=== PATIENT | male | born 1935 | race Caucasian/White ===

== ENCOUNTER 2018-04-12 22:36 | Inpatient (IN) | payer OTHER ==
--- NOTE | 2018-04-12 22:49 | EDPHY ---
H & P Stated Complaint: BACK PAIN/POS PROSTATE INFX Time Seen by Provider: 04/12/18 22:49 HPI/ROS: HPI: This 82-year-old male who presented with Chief Complaint: Low back pain left lower quadrant pain Location: Low back, left lower quadrant Quality: Pain Duration: Several days Signs and Symptoms: no fever, no nausea, no vomiting, no hematemesis, no blood in stool, no abdominal bloating, no diarrhea, no back pain, no urinary symptoms , no testicular/groin pain, no indigestion, no chest pain, no shortness of breath Timing: Acute Severity: Worsening Context: Patient reports that he was having dysuria, urinary frequency, low back pain for several days and to urgent care [id number] and was diagnosed with BPH and acute prostatitis; he was given Flomax and Bactrim for which she has been taking and being compliant. Over the last several days patient has continued to feel generalized weakness with fatigue. His daughter is extremely concerned that he has diverticulitis and with like laboratory studies and CT abdomen and pelvis scan performed. Patient reports that he has a decreased appetite. Denies any fever/diarrhea/nausea/vomiting. Modifying Factors: Bactrim, Flomax Comment: ROS: see HPI Constitutional: No fever, no chills, no weight loss Eyes: No blurred vision Respiratory: No shortness of breath, no cough Cardiovascular: No chest pain, no palpitations Gastrointestinal: No nausea, no vomiting, no diarrhea, no hematemesis, no blood in stool Genitourinary: No dysuria, no blood in urine Extremities: No myalgias, no edema Neurologic: No weakness, no numbness Skin: No rashes, no petechiae Hematologic: No bruising, no bleeding MEDICAL/SURGICAL/SOCIAL HISTORY: Medical history: Hard of hearing on right; BPH. Surgical history: Tonsillectomy Social history: Retired. Never smoked. Family history noncontributory. CONSTITUTIONAL: Polite and cooperative elderly white male, awake and alert, no obvious distress HEENT: Atraumatic and normocephalic, PERRL, EOMI. Nares patent; no rhinorrhea; no nasal mucosal edema. Tympanic membranes clear. Oropharynx clear, no exudate and moist pink mucosa. Airway patent. No lymphadenopathy. No meningismus. Cardiovascular: Normal S1/S2, regular rate, regular rhythm, without murmur rub or gallop. PULMONARY/CHEST: Symmetrical and nontender. Clear to auscultation bilaterally. Good air movement. No accessory muscle usage. ABDOMEN: Soft, nondistended, minimal left lower quadrant tenderness, no rebound , no guarding, no peritoneal signs, no masses or organomegaly. No CVAT. EXTREMITIES: 2/2 pulses, strength 5/5, no deformities, no clubbing, no cyanosis or edema. NEUROLOGICAL: no focal neuro deficits. GCS 15. SKIN: Warm and dry, no erythema. no rash. Good capillary refill. Source: Patient, Family (Daughter) Exam Limitations: No limitations - Personal History Current Tetanus Diphtheria and Acellular Pertussis (TDAP): Yes Tetanus Vaccine Date: 07/11 - Medical/Surgical History Hx Asthma: No Hx Chronic Respiratory Disease: No Hx Diabetes: No Hx Cardiac Disease: No Hx Renal Disease: No Hx Cirrhosis: No Hx Alcoholism: No Hx HIV/AIDS: No Hx Splenectomy or Spleen Trauma: No Other PMH: TONSIL, ADENOIDS, EYE STRAIGHTENING - Social History Smoking Status: Never smoked Constitutional: Initial Vital Signs Temperature (C) 36.6 C 04/12/18 22:42 Heart Rate 71 04/12/18 22:42 Respiratory Rate 16 04/12/18 22:42 Blood Pressure 172/86 H 04/12/18 22:42 O2 Sat (%) 92 04/12/18 22:42 O2 Delivery Mode Room Air Allergies/Adverse Reactions: No Known Allergies Allergy (Verified 04/12/18 22:41) Home Medications: Medication Instructions Recorded NK [No Known Home Meds] 04/12/18 Medical Decision Making ED Course/Re-evaluation: Vital signs reviewed and stable. No systemic signs. Labs, urinalysis, CT abdomen and pelvis scan to evaluate for diverticulitis ordered. 2315: Labs reviewed. Creatinine 2.9; BUN 42; in 2011 creatinine was around 1. 1 L normal saline ordered. CT abdomen and pelvis scan changed to without contrast and differential now includes ureterolithiasis. Called by radiologist who advised that CT abdomen and pelvis scan shows significant bladder wall thickening concerning for malignancy as well as right ureteral blockage in obstructing in the collecting system 2354: ED decision to consult hospitalist for admission acute kidney injury secondary to obstruction verses Bactrim induced and bladder malignancy. Spoke with Dr. Hackett who kindly agrees to admit patient for further care. Urology consulted. This patient was seen under the supervision of my secondary supervising physician. I evaluated care for this patient independently. Discussed this patient with Dr. Mejia who did not see the patient. Differential Diagnosis: Back pain including but not limited to muscular pain, herniated disc, spine fracture, intra-abdominal causes and urinary tract infection. - Data Points Laboratory Results: Laboratory Results 04/12/18 23:07 04/12/18 23:07 04/12/18 04/12/18 04/12/18 23:10 23:07 23:07 WBC 9.62 10^3/uL H 10^3/uL (3.80-9.50) RBC 4.53 10^6/uL 10^6/uL (4.40-6.38) Hgb 14.7 g/dL g/dL (13.7-17.5) POC Hgb 15.3 gm/dL gm/dL (13.7-17.5) Hct 42.9 % % (40.0-51.0) POC Hct 45 % % (40-51) MCV 94.7 fL fL (81.5-99.8) MCH 32.5 pg pg (27.9-34.1) MCHC 34.3 g/dL g/dL (32.4-36.7) RDW 13.3 % % (11.5-15.2) Plt Count 166 10^3/uL 10^3/uL (150-400) MPV 10.1 fL fL (8.7-11.7) Neut % (Auto) 76.8 % H % (39.3-74.2) Lymph % (Auto) 8.1 % L % (15.0-45.0) [place] % (Auto) 14.2 % H % (4.5-13.0) Eos % (Auto) 0.4 % L % (0.6-7.6) Baso % (Auto) 0.3 % % (0.3-1.7) Nucleat RBC Rel Count 0.0 % % (0.0-0.2) Absolute Neuts (auto) 7.38 10^3/uL H 10^3/uL (1.70-6.50) Absolute Lymphs (auto) 0.78 10^3/uL L 10^3/uL (1.00-3.00) Absolute Monos (auto) 1.37 10^3/uL H 10^3/uL (0.30-0.80) Absolute Eos (auto) 0.04 10^3/uL 10^3/uL (0.03-0.40) Absolute Basos (auto) 0.03 10^3/uL 10^3/uL (0.02-0.10) Absolute Nucleated RBC 0.00 10^3/uL 10^3/uL (0-0.01) Immature Gran % 0.2 % % (0.0-1.1) Immature Gran # 0.02 10^3/uL 10^3/uL (0.00-0.10) POC Sodium 138 mEq/L mEq/L (135-145) Sodium 140 mEq/L mEq/L (135-145) POC Potassium 4.9 mEq/L mEq/L (3.3-5.0) Potassium 4.9 mEq/L mEq/L (3.3-5.0) POC Chloride 112 mEq/L H mEq/L (97-110) Chloride 110 mEq/L mEq/L (97-110) Carbon Dioxide 16 mEq/l L mEq/l (22-31) Anion Gap 14 mEq/L mEq/L (8-16) POC BUN 45 mg/dL H mg/dL (7-23) BUN 42 mg/dL H mg/dL (7-23) Creatinine 2.5 mg/dL H mg/dL (0.7-1.3) POC Creatinine 2.9 mg/dL H mg/dL (0.7-1.3) Estimated GFR 25 Glucose 119 mg/dL H mg/dL (70-100) POC Glucose 126 mg/dL H mg/dL (70-100) Calcium 9.0 mg/dL mg/dL (8.5-10.4) Total Bilirubin 0.4 mg/dL mg/dL (0.1-1.4) Conjugated Bilirubin 0.4 mg/dL mg/dL (0.0-0.5) Unconjugated Bilirubin 0.0 mg/dL mg/dL (0.0-1.1) AST 28 IU/L IU/L (17-59) ALT 37 IU/L IU/L (21-72) Alkaline Phosphatase 92 IU/L IU/L (38-126) Total Protein 6.1 g/dL L g/dL (6.3-8.2) Albumin 3.0 g/dL L g/dL (3.5-5.0) Lipase 47 IU/L IU/L (23-300) Medications Given: Discontinued Medications Sodium Chloride (Ns) 1,000 mls @ 0 mls/hr IV EDNOW ONE; Wide Open PRN Reason: Protocol Stop: 04/12/18 23:17 Last Admin: 04/12/18 23:16 Dose: 1,000 mls Point of Care Test Results: Chemistry 04/12/18 23:10 POC Sodium 138 mEq/L mEq/L (135-145) POC Potassium 4.9 mEq/L mEq/L (3.3-5.0) POC Chloride 112 mEq/L H mEq/L (97-110) POC BUN 45 mg/dL H mg/dL (7-23) POC Creatinine 2.9 mg/dL H mg/dL (0.7-1.3) POC Glucose 126 mg/dL H mg/dL (70-100) ISTAT H&H 04/12/18 23:10 POC Hgb 15.3 gm/dL gm/dL (13.7-17.5) POC Hct 45 % % (40-51) Departure - Departure Disposition: [facility] Acute Clinical Impression: DENISE (acute kidney injury), Obstruction of right ureter Bladder malignancy Qualifiers: Bladder location: unspecified site Qualified Code(s): C67.9 - Malignant neoplasm of bladder, unspecified Condition: Fair
[2018-04-12 23:15] LABS: PLATELET COUNT 166 10^3/uL (150-400)
[2018-04-12] MEDS ORDERED: NS 1,000 ML IV ONE (23:16)
[2018-04-13] MEDS ORDERED: HYDROmorphONE/DILAUDID 1 MG/ML INJ IVP PRN (00:25)
[2018-04-13] MEDS ORDERED: ONDANSETRON 4 MG/2 ML VIAL IVP PRN (00:25)
[2018-04-13] MEDS: HYDROCODONE/APAP 5/325 TAB PO PRN ×3 (00:40→18:47)
[2018-04-13] MEDS ORDERED: TEMAZEPAM 15 MG CAP PO PRN (02:49)
[2018-04-13] MEDS ORDERED: LORazepam 0.5 MG TAB PO ONE (03:03)
[2018-04-13] MEDS ORDERED: POLYETHYLENE GLYCOL 3350 17 GM PKT PO PRN (03:19)
[2018-04-13] MEDS ORDERED: BISACODYL 10 MG SUPP PR PRN (03:19)
[2018-04-13] MEDS ORDERED: LACTULOSE 20 GM/30 ML UDCUP PO PRN (03:19)
[2018-04-13] MEDS ORDERED: MAGNESIUM HYDROXIDE 30 ML UDCUP PO PRN (03:19)
--- NOTE | 2018-04-13 04:06 | GHP ---
[f rep st] HISTORY AND PHYSICAL DATE OF ADMISSION: 04/13/2018 SOURCE OF DATA: Patient provides history, appears reliable. EMR was reviewed and case discussed with ED provider. PRIMARY CARE PHYSICIAN: Unlisted. CHIEF COMPLAINT: Low back pain and left lower quadrant abdominal pain. HISTORY OF PRESENT ILLNESS: This is a very pleasant 82-year-old gentleman with past medical history significant for BPH, macular degeneration, hearing deficit , and history of diverticulosis, who presents to the emergency department today with complaints of worsening low back pain and left lower quadrant abdominal pain for several days. The patient reports that his low back pain actually started weeks to months ago. He had an episode of hematuria at 1 point, which did clear, but this was several months ago. He has a history of urinary frequency, nocturia and difficulty initiating urinary stream. He has not had a formal diagnosis of BPH. However, he did present to Urgent Care a few days ago and was diagnosed with prostatitis and started on Flomax and Bactrim. The patient since that time has developed worsening generalized weakness and increasing fatigue, decreased appetite. He denies any fevers, chills, nausea, vomiting, or diarrhea. He has not had any melena or hematochezia. No known sick contacts. REVIEW OF SYSTEMS: GENERAL: Negative for fevers, chills. SKIN: No acute rashes, sores. ENT: Patient reports some disequilibrium with ambulation occasionally related to his progressively declining hearing, right worse than left ear. He denies any rhinorrhea or sore throat. EYES: Patient wears glasses. No acute vision changes, but has progressively had decline related to his macular degeneration. CV: No chest pain, palpitations. RESPIRATORY: Patient does report that he has been having increasing shortness of breath with exertion in the last several weeks. He denies any cough. He also notes that he has had some issues with adjustment when he would go back home to [place] related to altitude at 8700 feet. However, in the last several weeks, he reports this is more unusual than normal. He denies any lower extremity swelling or edema. No calf pain or tenderness. GI: See HPI. : The patient denies any dysuria, but he has had plenty of frequency with decreased stream and difficulties initiating a stream. He has had a singular episode of hematuria that resolved several months ago. No tobacco history. MUSCULOSKELETAL: The patient denies any acute joint pain or myalgias. NEURO: Patient does report occasional pressure-type headaches. No numbness, tingling, or focal deficits. PSYCH: Negative for anxiety, depression. Remainder ROS negative except as noted above. ALLERGIES: No known drug allergies. HOME MEDICATIONS: As per EMR. Just recently patient was started on Bactrim and Flomax. Otherwise, none listed. PAST MEDICAL HISTORY: Significant for macular degeneration, BPH, hearing deficit, history of lower GI bleeding diagnosed with diverticulosis, internal hemorrhoids. PAST SURGICAL HISTORY: Significant for tonsillectomy, adenoidectomy, EGD and colonoscopy in 2018. FAMILY HISTORY: Father , related to CAD. Mother at old age of 98. The patient has 4 adult children who are mostly healthy. He has 1 son with a history of prostate cancer. No colon cancer runs in the family. SOCIAL HISTORY: Patient lives alone currently. He is . He previously had a prototype technician living with him, but she has since moved out of state. He has good support from his children in town. He does not smoke. He drinks an occasional beer. Nothing on a daily basis and does not use any illicit drugs or marijuana. CODE STATUS: Patient with advanced directives and is a DNR DNI. PHYSICAL EXAM: VITAL SIGNS: Blood pressure 172/86, heart rate 71, respiratory rate 16, O2 saturation 92% on room air with temperature 36.6. GENERAL: No acute distress. Pleasant, elderly adult gentleman is resting quietly in bed. He wakes easily to his name. Pleasant and cooperative. HEAD: Normocephalic, atraumatic. EYES: Extraocular muscles grossly intact. Pupils equal, round, decreased reactive to light bilaterally, but symmetric. No scleral icterus or conjunctival injection. ENT: Mucous membranes appear slightly dry. No oropharyngeal erythema or exudates. Dentition is fair condition. NECK: Supple. Trachea midline. CV: Regular rate and rhythm. No murmurs, rubs, or gallops appreciated. RESPIRATORY: Unlabored breathing. Lungs are clear to auscultation bilaterally, but he is a bit diminished bibasilarly, possibly a few crackles in the left base compared to the right. Otherwise, unlabored breathing. ABDOMEN: Positive bowel sounds. Soft, nontender to palpation. No rebound, guarding, or masses appreciated. : No Cuevas catheter in place. No suprapubic tenderness to palpation. EXTREMITIES: 2+ pedal pulses bilaterally and symmetric. No edema. Patient sits up independently. Moves all extremities. Strength grossly intact. 5/5 upper and lower extremities. NEURO: Grossly nonfocal. No facial drooping. Moves all extremities as noted above. PSYCH: Thought process, content and questions are all appropriate. Patient awake, alert, and oriented x3. LABORATORY STUDIES: 1. WBC is 9.62, H and H is 14.7, 42.9, MCV of 94.7, platelet count is 166, neutrophil percent 76.8, no bands. 2. Sodium is 140, potassium 4.9, chloride 110, CO2 16, BUN is 42, creatinine is 2.5, GFR estimate is 25, glucose 119, calcium is 9.2. Total protein 6.1, albumin is 3.0, total bilirubin 0.4, ALT is 37, AST 28, alkaline phosphatase 92 , lipase is 47. UA: Specific gravity 1.019, pH of 5.0, 2+ protein, 1+ leuk esterase. RBCs and WBCs are pending. Glucose negative. 3. CT abdomen and pelvis: Image report was reviewed myself, is noncontrast study. Visualized lung bases show no discrete consolidation or effusion. Pulmonary nodule, normal size liver with smooth surface contour, 6 mm hypoattenuating nodule within the inferior left hepatic lobe, probably a simple cyst. Gallbladder decompressed. No ductal dilation. There is a high-grade obstruction of the right renal collecting system with inflammatory stranding throughout the renal hilum. Obstruction likely related to irregular masslike thickening of the right bladder wall. There is also pathologic enlargement of the adjacent lymph nodes in the internal iliac chain, sales support representative of large lymph node measuring up to 1.9 cm. Numerous bilateral renal cortical nodules suggestive of simple and hypoattenuated cysts, limited secondary to noncontrast study. Hiatal hernia present is small. Small bowel is nondilated, non thickened, large right inguinal hernia contains nonobstructed loops of distal small bowel. There is dilation of the cecum with retained stool and gas. Extensive diverticulosis is noted. Prostate enlarged with dystrophic internal calcifications. No intraabdominal free fluid or free air. Multiple level degenerative changes in the lumbar spine are present. 4. Chest x-ray ordered. Image report reviewed myself. Appears to be some linear atelectasis, upper lobe haziness, perihilar prominence is present. ASSESSMENT AND PLAN: This is a pleasant 82-year-old gentleman who presents with complaints of low back pain and lower abdominal pain. 1. Abdominal pain. CT does not quite explain the patient's complaint of right- sided abdominal pain. He does have a high-grade obstructive process on the left renal collecting system with findings suggestive of malignancy. He also has a right-sided inguinal hernia which is relatively asymptomatic. At this time, patient reports that his pain is currently well controlled. CT findings were discussed with the patient previously by the ED provider. I did review again with the patient the findings. Plan for urology consultation has been called from the emergency department to see the patient tomorrow. The patient' s UA is still pending at this time. Given patient's high-grade obstructive process, we will plan to add on dosing of Rocephin. He has been on Bactrim. However, given patient's acute renal insufficiency, we will discontinue. We will plan to continue patient's Flomax. 2. Bladder wall mass. Plan as above. 3. Acute renal failure. Patient's most recent renal function dates back to 2011 and was 1.08. Likely some component of obstructive nephropathy given findings of bladder wall mass and high-grade obstruction on the right as well as patient's history of benign prostatic hypertrophy. Continue with some gentle IV fluid hydration. Continue with Flomax. Neurology consultation as noted above. Repeat BMP in the morning. 4. Dyspnea. Chest x-ray obtained. No evidence of acute consolidations. There are some chronic appearing findings in the upper lobe. Given patient's new finding of bladder wall mass at increased risk for pulmonary embolus, patient not currently tachycardic or hypoxic. Consider additional imaging if patient's renal function improves. Hold off on anticoagulation at this time pending Urology evaluation. 5. Benign prostatic hypertrophy. Continue Flomax. Monitor for urinary retention. 6. Hypoalbuminemia, likely declined in setting of newfound findings of bladder wall mass and acute process. 7. Constipation. Bowel protocol will be ordered. 8. Fluid, electrolyte and nutrition, IV fluids overnight for hydration. Will make patient be n.p.o., electrolyte monitoring, replacement if needed. 9. Prophylaxis. Sequential compression devices, holding anticoagulation pending urologic evaluation. 10. Code status is DNR DNI. Patient reports that he has advanced directives in place. 11. Disposition. The patient has been admitted to inpatient status. Anticipate that the patient will be here greater than 2 midnights given the complexity of his findings and need for additional workup. /[id number]/MODL MTDD
[2018-04-13 06:35] LABS: PLATELET COUNT 153 10^3/uL (150-400)
[2018-04-13] MEDS: SENNOSIDES/DOCUSATE SODIUM TAB PO SCH ×2 (09:43→20:52)
[2018-04-13] MEDS: TAMSULOSIN HCL 0.4 MG CAP PO SCH (09:43)
[2018-04-13] MEDS: NS 1,000 ML IV SCH (10:29)
--- NOTE | 2018-04-13 13:22 | PDMN ---
Medical Necessity Medical necessity: Pt meets IP criteria per & [facility]: Urinary Complications w/bladder wall mass/high-grade obstructive process suggestive of malignancy, worsening back pain, generalized weakness/fatigue, acute renal failure & dyspnea; admit for further workup, Urology consult, IV abx & IVFs
--- NOTE | 2018-04-13 14:11 | ASMTCMCOM ---
CM Note CM Note Notes: Chart reviewed. Patient is an 82 year old male from [facility]. He was brought in by his daughter Alejandra when she became concerned about his having difficulty with breathing after having been diagnosed with prostatitis and been taking antibiotics He normally spends most of his time in [facility] and is typically very active riding his bike to the store and into [place]. She shares with me she hopes to get him to come down to her home in [place] more often He lost his Ana about 17 years ago and most recently his auxiliary operator moved to [place] to be closer to her family. He is awaiting testing at this time. Needs TBD. Plan: TBD Date Signed: 04/13/2018 02:11 PM Electronically Signed By:Eliana Teresa RN
--- NOTE | 2018-04-13 14:35 | HOSPPROG ---
Hospitalist Progress Note Assessment/Plan: #Bladder Mass #Low back pain and LLQ Pain #High grade obstruction of renal collecting system due to bladder mass #Bilateral renal and parapelvic nodules #RLL 2 cm nodule #DENISE Plan: IVF Urology to see Additional imaging per Urology Would like to order CT chest, abd/pelvis with IV contrast once Cr. is improving Stop Rocephin cont inpatient Objective: Vital Signs Temp Pulse Resp BP Pulse Ox 36.7 C 58 L 16 161/73 H 93 04/13/18 12:42 04/13/18 12:42 04/13/18 12:42 04/13/18 12:56 04/13/18 12:42 Laboratory Results 04/13/18 06:10 04/13/18 06:10 04/12/18 04/13/18 04/14/18 05:59 05:59 05:59 Intake Total 1000 Output Total 150 Balance 850 ICD10 Worksheet Patient Problems: Problems Problem Status Onset DENISE (acute kidney injury) Acute Bladder malignancy Acute Obstruction of right ureter Acute Bleeding Active
--- NOTE | 2018-04-13 15:30 | GCON ---
[f rep st] CONSULTATION DATE OF CONSULTATION: 04/13/2018 REASON FOR CONSULT: Renal mass, question bladder mass. HPI: This is a pleasant 82-year-old male, who presented with right lower back pain that has been occ urring for the last week. He is also reporting feeling lack of energy and dizzy. He lives alone in [facility] and came down to visit his daughter, who, upon seeing how her father was feeling, recommended that she bring him into the emergency room. He is also now having a new symptom of shortness of kevin ath that occurs while at rest, which he denies having had in the past. He does have a long history o f urinary issues for the last at least a couple of years. He reports getting up 3 times at night wit h a low flow of urine. Denies a known history of prostate cancer or kidney cancer. Did have hematur ia once several months ago. Initially went to [facility] on 04/10/2018, before going to the ER. Was diagnosed with prostatitis and started on antibiotics. Yet, urine culture is negative at t hat visit. HOME MEDICATIONS: As per EMR. ALLERGIES: No known drug allergies. PAST MEDICAL HISTORY: Macular degeneration, BPH, hearing deficit, lower GI bleeding, diverticulosis, internal hemorrhoids. SURGICAL: Tonsillectomy, adenoidectomy, EGD and colonoscopy in 2018. FAMILY HISTORY: Father is from coronary artery disease. The patient has 4 adult children, including his daughter, who lives in [place], is at the bedside. SOCIAL HISTORY: Lives alone in [facility] and is healthy. Recently traveled to [place]. Denies smok ing. Occasional beer drinking. PHYSICAL EXAM: VITAL SIGNS: Blood pressure is 161/73. Heart rate is 58, respiratory rate 16, tempe rature 36.7. O2 is 93 on room air. GENERAL: This is a well-developed, well-nourished male in no ac misbah distress. HEENT: Normocephalic, atraumatic. Extraocular movements intact. NECK: Supple. No lymphadenopathy. CARDIAC: Regular rate and rhythm. No lower extremity edema. No obvious JVD. RES PIRATORY: Normal breath sounds without accessory respiratory muscle use. GI: Abdomen was soft, non distended, nontender to palpation. : No CVA tenderness. No bladder distention or tenderness to p alpation. INTEGUMENT: No obvious rashes or lesions. MUSCULOSKELETAL: Patient was examined while s upine. NEURO: He is alert and oriented. Affect appropriate to situation. LABS: His white blood cell count is 8.86, hemoglobin 13.3, hematocrit 39.3, platelets 153. His chem istry: Sodium 140, potassium 4.8, chloride 112, carbon dioxide 17, BUN 38, creatinine 2.4, glucose 8 8. PSA pending. Urine: Positive for 1+ leuks only. CAT scan of the abdomen and pelvis was reviewe d personally by myself, along with Dr. De Jesus. Does show a question of a possible mass versus enlarge d bladder versus fluid in the bladder, along with thickened-appearing bladder wall. Does have multip le nodules on the left kidney, by our read more concerning for inflammatory process on the right kidn ey, especially without clear evidence of an infection. ASSESSMENT/PLAN: Back pain of unknown etiology, question bladder mass, inflammatory process of the r ight kidney, mass of the left kidney. After review of this complicated case with Dr. De Jesus, we will order a CT cystogram to better assess the bladder. MRI of the kidneys has been ordered, along with a PSA. Once imaging and labs have returned, we will be better able to move forward in caring for this patient. /[id number]/MODL
[2018-04-13] MEDS ORDERED: IOPAMIDOL (ISOVUE-300) 100 ML BTL ONE (16:36)
[2018-04-13] MEDS: TRAVOPROST Z 0.004% 2.5 ML OPHT.BTL RTEYE SCH (20:52)
[2018-04-14] MEDS: HYDROCODONE/APAP 5/325 TAB PO PRN ×2 (01:06→09:15)
[2018-04-14] MEDS: hydrALAZINE 10 MG TAB PO PRN ×2 (01:44→09:13)
[2018-04-14] MEDS: LORazepam 0.5 MG TAB PO PRN ×2 (01:46→21:37)
[2018-04-14 05:08] LABS: PLATELET COUNT 162 10^3/uL (150-400)
[2018-04-14] MEDS: TAMSULOSIN HCL 0.4 MG CAP PO SCH (09:15)
[2018-04-14] MEDS: SENNOSIDES/DOCUSATE SODIUM TAB PO SCH ×2 (09:15→21:22)
[2018-04-14] MEDS: NS 1,000 ML IV SCH (10:02)
--- NOTE | 2018-04-14 11:29 | SOAPPROG ---
PRABHJOT Progress Note Assessment/Plan: Assessment: Bladder malignancy Acute CT cystogram concerning for prostate cancer and possible TCC of the bladder, Await PSA prior to further assessment Obstruction of right ureter Acute no dilation of ureter and good parenchyma, wait on PSA prior to further recommendations Plan: as noted 04/14/18 11:27 Subjective: stable Objective: Vital Signs Temp Pulse Resp BP Pulse Ox 36.9 C 66 18 168/81 H 92 04/14/18 08:26 04/14/18 10:43 04/14/18 09:19 04/14/18 10:43 04/14/18 10:43 Laboratory Results 04/14/18 04:26 04/14/18 04:26 04/13/18 04/14/18 04/15/18 05:59 05:59 05:59 Intake Total 2422 Output Total 1275 Balance 1147 Physical Exam - Physical Exam General Appearance: no apparent distress ICD10 Worksheet Patient Problems: Problems Problem Status Onset DENISE (acute kidney injury) Acute Bladder malignancy Acute Obstruction of right ureter Acute Bleeding Active
--- NOTE | 2018-04-14 13:04 | ASMTCMCOM ---
CM Note CM Note Notes: Chart reviewed. Still awaiting diagnostic results. Dr. De Jesus from urology in to see the patient. The patient and his daughter have ambulated in the halls. His gait is steady, No therapies currently ordered. CM to follow as needs are to be determined. Plan: TBD Date Signed: 04/14/2018 01:03 PM Electronically Signed By:Eliana Teresa RN
--- NOTE | 2018-04-14 14:38 | HOSPPROG ---
Hospitalist Progress Note Assessment/Plan: #Bladder Mass #Low back pain and LLQ Pain #High grade obstruction of renal collecting system due to bladder mass #Bilateral renal and parapelvic nodules #RLL 2 cm nodule #DENISE, vs acute on chronic, vs chronic #constipation -KUB reviewed Plan: IVF- cont urine studies no abx cont monte await PSA Urology following Would like to order CT chest, abd/pelvis with IV contrast once Cr. is improving cont inpatient Subjective: abd distention. some SOB Objective: Vital Signs Temp Pulse Resp BP Pulse Ox 36.9 C 61 16 170/78 H 91 L 04/14/18 12:43 04/14/18 12:43 04/14/18 12:43 04/14/18 12:43 04/14/18 12:43 Laboratory Results 04/14/18 04:26 04/14/18 13:38 04/13/18 04/14/18 04/15/18 05:59 05:59 05:59 Intake Total 2422 Output Total 1275 Balance 1147 - Physical Exam Constitutional: no apparent distress, not in pain Eyes: PERRL, EOMI Ears, Nose, Mouth, Throat: moist mucous membranes, hearing normal, ears appear normal Cardiovascular: regular rate and rhythym, No edema Respiratory: no respiratory distress, no rales or rhonchi Gastrointestinal: distension Skin: warm Musculoskeletal: No generalized weakness Neurologic: AAOx3 Psychiatric: interacting appropriately, not anxious Lymph, Heme, Immunologic: no cervical LAD, No petechiae ICD10 Worksheet Patient Problems: Problems Problem Status Onset DENISE (acute kidney injury) Acute Bladder malignancy Acute Obstruction of right ureter Acute Bleeding Active
[2018-04-14 15:29] LABS: CREATINE KINASE 25 IU/L (0-224)
--- NOTE | 2018-04-14 16:25 | GCON ---
[f rep st] CONSULTATION ONCOLOGY CONSULT REASON FOR CONSULTATION: Bladder mass. HISTORY OF PRESENT ILLNESS: Much of the history was obtained from both the patient, the chart, and gianluca hui his daughter, Alejandra, who is very up to date about his health care. He reports that he has been h aving increasing trouble with urination. He has also had some abnormal discomfort and sensation for the last 3 or 4 months down in his pelvis and genital area. After he went to the bathroom a couple d ays ago, he did have some severe pain, but then it seemed to settle down with some Advil. The next d ay, the pain kept coming back, and he saw his PCP. I believe the UA at that time was unremarkable. On Tuesday, his daughter notes that he seemed more fatigued, and with the urinary problem she took him to Urgent Care. They gave him antibiotics and Flomax for possible prostatitis. Since that time, carol ann bourne generalized weakness and fatigue worsened, and he has had decreased appetite. He has had some mild dyspnea with exertion. He denied any bleeding or significant bruising. Denied any fever or chills. He was brought to the emergency room for the persistent low-back pain and lower quadrant abdominal pain where a CT scan revealed a possible high-grade obstruction of the right renal collecting system with stranding in the hilum, and an irregular mass-like thickening in the right bladder wall, and han e enlargement in the surrounding lymph nodes, and enlarged prostate. He has been seen by Urology, bu t has not had a biopsy yet. I reviewed the films with Dr. De Jesus. ALLERGIES: He has no known drug allergies. HOME MEDICATIONS: Include eye drops; travoprost. He also takes ibuprofen. He was recently on Bactr im for the prostatitis. Tamsulosin and multivitamin. PAST MEDICAL HISTORY: Chronic illnesses really minimal. He has had BPH, macular degeneration with t rouble with his vision, chronic hearing loss, and diverticulosis. SURGICAL HISTORY: Includes eye surgery and tonsillectomy as a child. FAMILY HISTORY: Mother age 98. Father of heart disease. No history of cancer in either o f them. He had a sister with a history of breast cancer, but no other cancer in siblings. He has 4 children; 2 brothers, one recently diagnosed with prostate cancer, and 1 daughter. SOCIAL HISTORY: He is a . He currently lives alone, but he has local children who support hi m. Does not smoke. He drinks only an occasional beer and no drug use. He typically is very active. REVIEW OF SYSTEMS: 10-point review of systems performed. Pertinent positives as per HPI, otherwise negative. PHYSICAL EXAM: VITAL SIGNS: Temperature is 36.9, pulse is 61, blood pressure is 170/78. General: He is an elderly man in no distress. HEENT: He has poor vision. Sclerae nonicteric. Oral mucosa i s unremarkable. He has decreased hearing, but not wearing his hearing aids right now. LUNGS: Clear . CARDIAC: Regular. ABDOMEN: Soft, mildly distended. Bowel sounds are present. EXTREMITIES: Un remarkable. NEUROLOGICAL: Appears to be grossly intact. He does have a Cuevas catheter in, and he smiley s had 1100 mL out recently of urine. LABS: On arrival, white count is 9600, hemoglobin is normal, platelet count is normal. Today, the C BC is similar. CMP: On arrival, his BUN and creatinine are 42 and 2.5. His other chemistries and L FTs are unremarkable. Albumin is down to 3. Today, his BUN and creatinine are 32 and 2.0. Potassiu m is up a little bit, 5.3. PSA is 3.08. IMAGING: Chest x-ray showed mild bibasilar atelectasis, some peribronchial wall thickening. X-ray o f the abdomen showed constipation. CT of the abdomen and pelvis showed high-grade obstruction in the right renal collecting system; bilateral renal cortical and parapelvic nodules, most likely cysts; e xtensive diverticulosis; large right internal hernia. He has a bladder wall mass on the right side p robably involving the distal right ureter with associated pelvic lymphadenopathy. He also has an enl arged prostate. There is a small 6 mm nodule in the left lobe, probably a cyst. Chest x-ray at the time showed a right lower lobe 2 cm rounded pneumonitis or pulmonary nodule. Abdominal MRI showed ri ght nephromegaly with right renal hilar inflammation and [id number] right hydronephrosis, lik silvino reflecting calyceal rupture in a patient with a bladder mass obstructing the right ureterovesical junction. CT pelvis with cystogram showed right-sided bladder mass obstructing the ureterovesical j unction and contiguous with an enlarged nodular prostate. Could be an extension of prostate carcinom a versus a bladder carcinoma, enlarged right pelvic lymph node. IMPRESSION: 1. Enlarged prostate. 2. Probable right bladder mass, unclear etiology. 3. Right hydronephrosis. 4. Vague constitutional symptoms. PLAN: At this point, with a normal PSA, locally invasive prostate cancer seems unlikely. He still c ould have BPH. I spoke to Dr. De Jesus, and his approach was going to be dependent upon that PSA, and I will defer to him how best to evaluate the bladder mass. With it obstructing the right kidney and w ith an associated lymph node, I am concerned about a localized malignancy. If it turns out to be wilson dder cancer spread to the lymph nodes, he would not be a great candidate for standard chemotherapy, a lthough he could probably tolerate immuno-oncology therapy. At this point, main recommendation is ma ybe check a sed rate to make sure he does not have evidence of PMR as well as a CPK to make sure he d oes not have any signs of myositis, perhaps also having an aldolase. In addition, since there is a q uestion in his lung, we can get a CT without contrast. We will follow along with you while in the spital, but defer further workup to Urology. /[id number]/MODL
[2018-04-14] MEDS: hydrALAZINE 20 MG/ML VIAL IVP PRN (17:17)
[2018-04-14] MEDS: TRAVOPROST Z 0.004% 2.5 ML OPHT.BTL RTEYE SCH (21:36)
[2018-04-15] MEDS: NS 1,000 ML IV SCH ×2 (05:05→21:03)
[2018-04-15] MEDS: HYDROCODONE/APAP 5/325 TAB PO PRN ×3 (05:57→21:08)
--- NOTE | 2018-04-15 09:08 | SOAPPROG ---
SOAP Progress Note Assessment/Plan: Assessment: 1. Bladder mass 2. R ureteral obstruction / hydronephrosis due to #1 3. ?calyceal rupture 4. Renal failure, likely due to obstruction, improving Given that PSA is normal, likely dx is bladder cancer. Neuroendocrine variant of prostate cancer or other malignancy cannot be excluded. Plan: - d/w Dr. Roque of urology. Pt ultimately needs a biopsy for diagnosis, but may not happen on the weekend. - ?ureteral stent or nephrostomy tube to treat R hydronephrosis? will defer to urology re: optimal management. Cr is improving - continue gentle IV fluids - further oncologic care to be determined by the diagnosis. evidence of regional adenopathy but no distant mets. will need bone scan at some point. 35 min spent w/ pt and in coordination of care. 04/15/18 09:05 Subjective: feels well. Objective: exam: NAD Lungs CTAB CV RRR no MGR Abd: +BS. distended. monte in place Ext: 1+ edema Neuro: a+ox3 Vital Signs Temp Pulse Resp BP Pulse Ox 36.7 C 67 17 154/85 H 92 04/15/18 08:38 04/15/18 08:38 04/15/18 08:38 04/15/18 08:38 04/15/18 08:38 Laboratory Results 04/14/18 04:26 04/15/18 05:12 04/14/18 04/15/18 04/16/18 05:59 05:59 05:59 Intake Total 2422 Output Total 1275 1400 Balance 1147 -1400 ICD10 Worksheet Patient Problems: Problems Problem Status Onset DENISE (acute kidney injury) Acute Bladder malignancy Acute Obstruction of right ureter Acute Bleeding Active
[2018-04-15] MEDS: TAMSULOSIN HCL 0.4 MG CAP PO SCH (09:57)
[2018-04-15] MEDS: SENNOSIDES/DOCUSATE SODIUM TAB PO SCH ×3 (09:57→21:08)
--- NOTE | 2018-04-15 12:23 | SOAPPROG ---
PRABHJOT Progress Note Assessment/Plan: Assessment: Bladder malignancy Acute CT cystogram concerning for prostate cancer and possible TCC of the bladder, normal PSA and BPH is considered in his LUT assessment, discussed and consider TURBT with understanding this may not be successful based on mass effect Obstruction of right ureter Acute no dilation of ureter and good parenchyma, discussed options of PCN, attempt to place stent or retrograde yet doubtful can be done Plan: as noted 04/15/18 12:20 Subjective: improving Objective: Vital Signs Temp Pulse Resp BP Pulse Ox 36.7 C 67 17 154/85 H 94 04/15/18 08:38 04/15/18 08:38 04/15/18 08:38 04/15/18 08:38 04/15/18 10:31 Laboratory Results 04/14/18 04:26 04/15/18 05:12 04/14/18 04/15/18 04/16/18 05:59 05:59 05:59 Intake Total 2422 Output Total 1275 1400 Balance 1147 -1400 Physical Exam - Physical Exam General Appearance: alert Respiratory: No respiratory distress Abdomen: soft Neuro/Psych: alert, oriented x 3 ICD10 Worksheet Patient Problems: Problems Problem Status Onset DENISE (acute kidney injury) Acute Bladder malignancy Acute Obstruction of right ureter Acute Bleeding Active
--- NOTE | 2018-04-15 12:44 | HOSPPROG ---
Hospitalist Progress Note Assessment/Plan: #Bladder Mass causing right sided hydronephrosis -PSA not elevated, making the diagnosis of Bladder cancer more probable #Low back pain and LLQ Pain #High grade obstruction of renal collecting system due to bladder mass #Bilateral renal and parapelvic nodules #RLL 2 cm nodule -no e/o of metastasis on CT w/o IV contrast #DENISE, vs acute on chronic, vs chronic -Due to obstruction -Improving #constipation and abdominal distention -KUB reviewed Plan: -IVF -Urology following, will await surgical recc, biopsy reccs for diagnosis -no abx -cont monte -CLD (no e/o of obstruction on imaging, but distended abd and decreased BS). -Avoid narcotics if possible as likely contributing to decreased gut motility Subjective: no cp or sob. still with abd distention but improving. had large BM last night. Objective: Vital Signs Temp Pulse Resp BP Pulse Ox 36.7 C 67 17 154/85 H 94 04/15/18 08:38 04/15/18 08:38 04/15/18 08:38 04/15/18 08:38 04/15/18 10:31 Laboratory Results 04/14/18 04:26 04/15/18 05:12 04/14/18 04/15/18 04/16/18 05:59 05:59 05:59 Intake Total 2422 Output Total 1275 1400 Balance 1147 -1400 - Physical Exam Constitutional: no apparent distress Eyes: PERRL, EOMI Ears, Nose, Mouth, Throat: moist mucous membranes Cardiovascular: regular rate and rhythym Respiratory: no respiratory distress Gastrointestinal: distension, No normoactive bowel sounds Skin: warm Musculoskeletal: generalized weakness Neurologic: AAOx3 Psychiatric: interacting appropriately, not anxious Lymph, Heme, Immunologic: No petechiae ICD10 Worksheet Patient Problems: Problems Problem Status Onset DENISE (acute kidney injury) Acute Bladder malignancy Acute Obstruction of right ureter Acute Bleeding Active
[2018-04-15] MEDS: ACETAMINOPHEN 325 MG TAB PO PRN ×2 (14:09→23:08)
[2018-04-15] MEDS: hydrALAZINE 20 MG/ML VIAL IVP PRN ×2 (18:42→23:35)
[2018-04-15] MEDS: TRAVOPROST Z 0.004% 2.5 ML OPHT.BTL RTEYE SCH (21:03)
[2018-04-15] MEDS: LORazepam 0.5 MG TAB PO PRN (21:05)
[2018-04-16] MEDS: HYDROCODONE/APAP 5/325 TAB PO PRN ×2 (01:56→21:07)
[2018-04-16] MEDS: TAMSULOSIN HCL 0.4 MG CAP PO SCH (08:54)
[2018-04-16] MEDS: SENNOSIDES/DOCUSATE SODIUM TAB PO SCH ×2 (08:54→21:07)
[2018-04-16] MEDS: ACETAMINOPHEN 325 MG TAB PO PRN (08:54)
--- NOTE | 2018-04-16 09:30 | SOAPPROG ---
PRABHJOT Progress Note Assessment/Plan: Assessment: Bladder malignancy Acute CT cystogram concerning for prostate cancer and possible TCC of the bladder, normal PSA and BPH is considered in his LUT assessment, discussed and consider TURBT with understanding this may not be successful based on mass effect Obstruction of right ureter Acute no dilation of ureter and good parenchyma, discussed options of PCN, attempt to place stent or retrograde yet doubtful can be done, consider contrast study if creat normalizes Plan: as noted 04/16/18 09:29 Subjective: ambulating to BR, abdominal and flank pain improved Objective: Vital Signs Temp Pulse Resp BP Pulse Ox 36.7 C 70 15 169/80 H 92 04/16/18 08:39 04/16/18 08:39 04/16/18 08:39 04/16/18 08:39 04/16/18 08:39 Laboratory Results 04/14/18 04:26 04/16/18 04:30 04/15/18 04/16/18 04/17/18 05:59 05:59 05:59 Intake Total 2159 Output Total 1400 800 Balance -1400 1359 Physical Exam - Physical Exam General Appearance: alert Respiratory: No respiratory distress Abdomen: non-tender Skin: warm/dry Neuro/Psych: alert ICD10 Worksheet Patient Problems: Problems Problem Status Onset DENISE (acute kidney injury) Acute Bladder malignancy Acute Obstruction of right ureter Acute Bleeding Active
--- NOTE | 2018-04-16 09:53 | HOSPPROG ---
Hospitalist Progress Note Assessment/Plan: #Bladder Mass causing right sided hydronephrosis -PSA not elevated, making the diagnosis of Bladder cancer more probable -Cr is improving -Monte is in #Low back pain and LLQ Pain #High grade obstruction of renal collecting system due to bladder mass #Bilateral renal and parapelvic nodules #RLL 2 cm nodule -no e/o of metastasis on CT w/o IV contrast #DENISE, vs acute on chronic, vs chronic -Due to obstruction -Improving #constipation and abdominal distention -s/p BM's Plan: -I spoke with Dr. De Jesus today. He is not planning on any urological interventions at this time. He would like to see the patient f/u with him this week in clinic. The monte is to remain in. Cr is improving. As an outpatient, Dr. De Jesus will consider urological options to include TURBT and Nephrostomy tube -As for ONC diagnosis, this is pending follow up -Advance Diet today, abd is less distended. He has had a bowel movement -Avoid narcotics if possible as likely contributing to decreased gut motility -Likely discharge tomorrow upon repeat labs and tolerating PO -Amlodipine will be started for HTN -PLan is for him to live with his daughter until he is strong enough to return living on his own Subjective: no cp or sob. still with low back pain, but improving. Able to ambulate. no cp or sob. Monte is draining well. Objective: Vital Signs Temp Pulse Resp BP Pulse Ox 36.7 C 70 15 169/80 H 92 04/16/18 08:39 04/16/18 08:39 04/16/18 08:39 04/16/18 08:39 04/16/18 08:39 Laboratory Results 04/14/18 04:26 04/16/18 04:30 04/15/18 04/16/18 04/17/18 05:59 05:59 05:59 Intake Total 2159 Output Total 1400 800 Balance -1400 1359 - Physical Exam Constitutional: no apparent distress Eyes: PERRL Ears, Nose, Mouth, Throat: moist mucous membranes Cardiovascular: regular rate and rhythym, No edema Respiratory: no respiratory distress Gastrointestinal: normoactive bowel sounds Skin: warm Musculoskeletal: generalized weakness Neurologic: AAOx3 Psychiatric: interacting appropriately, not anxious Lymph, Heme, Immunologic: No petechiae ICD10 Worksheet Patient Problems: Problems Problem Status Onset DENISE (acute kidney injury) Acute Bladder malignancy Acute Obstruction of right ureter Acute Bleeding Active
[2018-04-16] MEDS: amLODIPine BESYLATE 5 MG TAB PO SCH (10:39)
--- NOTE | 2018-04-16 11:20 | SOAPPROG ---
SOAP Progress Note Assessment/Plan: Assessment: 1. Bladder mass 2. R ureteral obstruction / hydronephrosis due to #1 3. ?calyceal rupture 4. Renal failure, likely due to obstruction, improving Given that PSA is normal, likely dx is bladder cancer. Neuroendocrine variant of prostate cancer or other malignancy cannot be excluded. Plan: - d/w dr justin. plan is for outpatient cystoscopy with biopsy + TURBT. - creatinine improving - no percutaneous nephrostomy for now. - pt to f/u with Dr. Gallegos in outpatient setting after biopsy. - will order bone scan to complete staging. 25 min spent w/ pt and in coordination of care. 04/16/18 11:19 Subjective: feeling a bit stronger today. Objective: exam unchanged Vital Signs Temp Pulse Resp BP Pulse Ox 36.7 C 70 15 169/80 H 92 04/16/18 08:39 04/16/18 08:39 04/16/18 08:39 04/16/18 10:39 04/16/18 08:39 Laboratory Results 04/14/18 04:26 04/16/18 04:30 04/15/18 04/16/18 04/17/18 05:59 05:59 05:59 Intake Total 2159 Output Total 1400 800 Balance -1400 1359 ICD10 Worksheet Patient Problems: Problems Problem Status Onset DENISE (acute kidney injury) Acute Bladder malignancy Acute Obstruction of right ureter Acute Bleeding Active
--- NOTE | 2018-04-16 11:45 | ASMTCMCOM ---
CM Note CM Note Notes: Chart reviewed met with patient's daughter Alejandra [phone]. She would like to have home health for monte management and to monitor B/P. Per therapy, no needs at this time. They have no preference for C . Will refer to [facility]. Patient to see Dr. De Jesus for follow up of bladder cancer. CM to follow. Plan : home to daughter's house in [place]. Date Signed: 04/16/2018 11:44 AM Electronically Signed By:Eliana Teresa RN
[2018-04-16] MEDS: TRAVOPROST Z 0.004% 2.5 ML OPHT.BTL RTEYE SCH (21:06)
[2018-04-16] MEDS: LORazepam 0.5 MG TAB PO PRN (21:08)
[2018-04-17] MEDS: HYDROCODONE/APAP 5/325 TAB PO PRN ×2 (01:27→05:43)
[2018-04-17 07:36] VITALS: BP 152/75
[2018-04-17] MEDS: TAMSULOSIN HCL 0.4 MG CAP PO SCH (09:50)
[2018-04-17] MEDS: SENNOSIDES/DOCUSATE SODIUM TAB PO SCH (09:50)
[2018-04-17] MEDS: amLODIPine BESYLATE 5 MG TAB PO SCH (09:50)
--- NOTE | 2018-04-17 11:05 | ASMTCMCOM ---
CM Note CM Note Notes: Met with patient and his daughter. He will dc later today after his bone scan. He will have [facility] for HHC services. RN for monte care. Daughter provided with loan closet lists as well as the book on services in [facility] for alternative at home care. He is discharging to his daughters home in [place] and will be followed by Edil Francisco. CM available should other needs arise. Plan Home to daughter's with HHC. Date Signed: 04/17/2018 11:04 AM Electronically Signed By:Eliana Teresa RN
--- NOTE | 2018-04-17 11:32 | GDS ---
[f rep st] DISCHARGE SUMMARY DISCHARGE DIAGNOSES: 1. Bladder mass causing right hydronephrosis. 2. High-grade obstruction of the renal collecting system due to bladder mass. 3. Bilateral renal and parapelvic nodules. 4. Right lower lobe 2 cm nodule. 5. Acute kidney injury. 6. Constipation and abdominal distention. CONSULTANTS: 1. Dr. Edil De Jesus, Urology. 2. Dr. Andrew Nieves, Oncology. HOSPITAL COURSE: 1. Bladder mass causing right hydronephrosis: Patient has been seen by Urology who recommended outp atient treatments. The bladder has been decompressed with a Cuevas catheter. On day of discharge, th e patient is feeling better and awaits bone scan for further imaging. 2. Hypertension: The patient's blood pressure was quite elevated throughout the stay. He has been started on amlodipine. He will need to follow up with his primary care provider for regarding furthe r blood pressure management in the next 1-2 weeks post hospital discharge. PHYSICAL EXAMINATION: VITAL SIGNS: On day of discharge, blood pressure 152/75, pulse of 67, respira tory rate 16, O2 saturation 94% on 2.5 L. Temperature afebrile. GENERAL: In no acute distress. HE ART: S1, S2. LUNGS: Clear. ABDOMEN: Soft. EXTREMITIES: No edema. PERTINENT LABORATORY/X-RAY DATA: An MRI of the abdomen done 04/13/2018, refer to report. Chest CT d one 04/14/2018, refer to report. Bone scan is pending. DISCHARGE MEDICATIONS: Please refer to discharge medication reconciliation in [facility] for full deta ils. Below is a preliminary list: New medications: Norvasc 5 mg p.o. daily, Wilkinson 5/325 mg 1-2 tablets p.o. q.4 hours p.r.n. pain pres cription for #20 was given. DISCHARGE INSTRUCTIONS: The patient will be discharged from the hospital. Once again, he will need to follow up with his primary care provider in the next week for routine hospital followup and blood pressure management, as well as Dr. De Jesus for further management of his bladder tumor with outpatient Oncology followup as needed. /[id number]/MODL
[2018-04-17] MEDS: ACETAMINOPHEN 325 MG TAB PO PRN (11:48)
--- NOTE | 2018-04-17 12:18 | PDIAF ---
- Diagnosis Diagnosis: bladder mass Code Status: Do Not Resuscitate - Medication Management Discharge Medications: Medications to Continue on Transfer RX: Ibuprofen [Motrin (*)] 200 mg PO DAILY PRN 04/13/18 [Last Taken Unknown] RX: Multivitamins [Multivitamin (*)] 1 each PO DAILY 04/13/18 [Last Taken Unknown] RX: Tamsulosin HCl [Flomax 0.4 MG (*)] 0.4 mg PO HS 04/13/18 [Last Taken ] RX: Travoprost Z 0.004% [Travatan Z 0.004% (*)] 1 drops RTEYE DAILY 04/13/18 [ Last Taken 04/12/18] RX: Hydrocodone/APAP 5/325 [[place] 5/325 (*)] 1 - 2 tab PO Q4HRS PRN #20 tab [Last Taken Unknown] RX: amLODIPine BESYLATE [Norvasc 5 mg (*)] 5 mg PO DAILY #14 tab 04/17/18 [Last Taken Unknown] Discharge Medications: Refer to the Discharge Home Medication list for PRN reason. - Orders Services needed: Registered Nurse (for monte care and Blood pressure monitoring) Diet Recommendation: no restrictions on diet Diet Texture: Regular Texture Diet Additional Instructions: follow up with Dr. De Jesus as directed - Follow Up Care Current Providers and Referrals: JULIAN HUDDLESTON [Other] - As per Instructions
--- NOTE | 2018-04-17 12:27 | ASMTCMCOM ---
CM Note CM Note Notes: Chart reviewed. Discussed HHC needs with . [facility] RN to follow, [facility] form complete. [facility] palliative referral placed in allscripts. CM available should other needs arise. Plan: Home to daughter's house with HHC. Date Signed: 04/17/2018 12:26 PM Electronically Signed By:Eliana Teresa RN
--- NOTE | 2018-04-18 08:28 | ASDISCHSUM ---
Discharge Information Plan Status:Home with Home Health Medically Cleared to Leave:04/17/2018 Discharge Date:04/17/2018 03:45 PM D/C Disposition:Home Health Service [facility] D/C Disposition:Home, Routine, Self-Care Projected Discharge Date:04/17/2018 11:00 AM Transportation at D/C:Family Discharge Delay Reason: Follow-Up Date:04/17/2018 11:00 AM Discharge Slot: Final Diagnosis: Placement Information Referral Type:*Home Health Care Services Referral ID:[id number] [facility] Address 1:[address] [facility] [address] Address 2: City:[place] Selection Factors: State:[place] Referral Type:Palliative Care Referral ID:[id number] Provider Name:[facility] Address 1:[address] [place] Address 2: City:[place] Selection Factors: State:[place] Patient Contact Information Contact Name:JUNIOR Relationship:Daughter Address: Work Phone: City: [facility] Phone: [facility] Code: Email: Financial Information Financial Class:Medicare Advantage Plans Primary Plan Desc:[employer] MEDICARE Primary Plan Number:[id number] Secondary Plan Desc: Secondary Plan Number: Assessment Information [facility] CM Progress Note CM Note CM Note Notes: Chart reviewed. Patient is an 82 year old male from [facility]. He was brought in by his daughter Alejandra when she became concerned about his having difficulty with breathing after having been diagnosed with prostatitis and been taking antibiotics He normally spends most of his time in [facility] [place] and is typically very active riding his bike to the store and into [place]. She shares with me she hopes to get him to come down to her home in [place] more often He lost his Ana about 17 years ago and most recently his social media sr strategy manager moved to [place] to be closer to her family. He is awaiting testing at this time. Needs TBD. Plan: TBD Date Signed: 04/13/2018 02:11 PM Electronically Signed By:Eliana Teresa RN BC CM Progress Note CM Note CM Note Notes: Chart reviewed. Still awaiting diagnostic results. Dr. De Jesus from urology in to see the patient. The patient and his daughter have ambulated in the halls. His gait is steady, No therapies currently ordered. CM to follow as needs are to be determined. Plan: TBD Date Signed: 04/14/2018 01:03 PM Electronically Signed By:Eliana Teresa RN BC CM Progress Note CM Note CM Note Notes: Chart reviewed met with patient's daughter Alejandra [phone]. She would like to have home health for monte management and to monitor B/P. Per therapy, no needs at this time. They have no preference for [facility] . Will refer to [facility]. Patient to see Dr. De Jesus for follow up of bladder cancer. CM to follow. Plan : home to daughter's house in [place]. Date Signed: 04/16/2018 11:44 AM Electronically Signed By:Eliana Teresa RN BC CM Progress Note CM Note CM Note Notes: Met with patient and his daughter. He will dc later today after his bone scan. He will have [facility] for HHC services. RN for [facility]. Daughter provided with [employer] as well as the book on services in [facility] for alternative at home care. He is discharging to his daughters home in [place] and will be followed by Edil Francisco. CM available should other needs arise. Plan Home to daughter's with HHC. Date Signed: 04/17/2018 11:04 AM Electronically Signed By:Eliana Teresa RN [facility] CM Progress Note CM Note CM Note Notes: Chart reviewed. Discussed HHC needs with . [facility] RN to follow, [employer] form complete. [facility] palliative referral placed in allscripts. CM available should other needs arise. Plan: Home to daughter's house with HHC. Date Signed: 04/17/2018 12:26 PM Electronically Signed By:Eliana Teresa RN Intervention Information
== END 2018-04-17 15:45 | disposition home or self-care (01) | DRG 687 ==
LOC: F1N 04-13 08:23
PROVIDERS: ADMIT Family Medicine; ATTEND Family Medicine
DX: D41.4 Neoplasm of uncertain behavior of bladder (principal); N17.9 Acute kidney failure, unspecified; N13.39 Other hydronephrosis; E86.9 Volume depletion, unspecified; N40.1 Benign prostatic hyperplasia with lower urinary tract symptoms; R91.1 Solitary pulmonary nodule; K59.00 Constipation, unspecified; I10 Essential (primary) hypertension; K40.90 Unilateral inguinal hernia, without obstruction or gangrene, not specified as recurrent; Z66 Do not resuscitate
CPT/HCPCS: 82435-PO; 82565-PO; 82947-PO; 84132-PO; 84295-PO; 84520-PO; 85014-PO; 97116-GP; 97161-GP; 97530-GP; A9503; G0103; G8978-GP-CJ; G8979-GP-CI; G8980-GP-CI; J0360; J0696; Q9967

== ENCOUNTER 2018-04-25 15:47 | Inpatient (IN) | payer OTHER ==
--- NOTE | 2018-04-25 16:31 | EDPHY ---
H & P Smoking Status: Never smoked Time Seen by Provider: 04/25/18 15:58 HPI/ROS: CHIEF COMPLAINT: Fever, chills, cough HISTORY OF PRESENT ILLNESS: 82-year-old male presents to the emergency department by private vehicle with his daughter with sudden onset of chills that began 11 o'clock this morning. The patient was feeling well this morning when he woke up and made himself breakfast and then at 11 o'clock eat a sudden onset of shaking chills. His daughter notes that he has been coughing all day. He feels mildly short of breath. He has no pain in his chest. Patient has a history of a tumor in his bladder that was to be scoped and biopsied today by Dr. Edil De Jesus. Unable to obtain the biopsy today and because of his history of shaking chills, he was sent to the emergency department for evaluation. The patient has an indwelling Cuevas catheter that was placed on 04/12/2018 this was due to the obstruction caused by the tumor. The patient has no dysuria. No back pain. No headache. His daughter noted that he was overall more weak today. REVIEW OF SYSTEMS: Constitutional: Subjective chills as above. Eyes: No double or blurry vision. ENT: No sore throat. Respiratory: Cough, shortness of breath Cardiac: No chest pain. Gastrointestinal: No abdominal pain, vomiting or diarrhea. Genitourinary: No dysuria. Musculoskeletal: No neck or back pain. Skin: No rashes. Neurological: No headache. (Caryn Bailey) Past Medical/Surgical History: Bladder tumor diagnosed on CT scan March 2018, tonsillectomy, adenoidectomy, macular degeneration, diverticulitis, orthopedic injuries (Caryn Bailey) Social History: The patient is a and lives independently in [place], [place]. He has been staying with his daughter who lives locally in [place] (Caryn Bailey) Physical Exam: General Appearance: Alert, no distress. Current temperature 36.6 degrees, heart rate 77, initial blood pressure 178/131, this was repeated the in the emergency department on my examination and was 179/82. 94% on room air. Eyes: Pupils equal and round. Extraocular motions are all intact. ENT: Mouth: Mucous membranes moist. Respiratory: No wheezing, rhonchi, or rales, lungs are clear to auscultation. Cardiovascular: Regular rate and rhythm. Gastrointestinal: Abdomen is soft and nontender, no masses, no rebound or guarding, bowel sounds normal. No CVA tenderness bilaterally. Neurological: Alert and oriented x 3, cranial nerves II through XII grossly intact Skin: Warm and dry, no rashes. Musculoskeletal: Nontender to palpate along the cervical, thoracic or lumbar spine. Neck is supple. Extremities: Full range of motion and no peripheral edema. Psychiatric: Patient is oriented X 3, there is no agitation. (Caryn Bailey) Constitutional: Initial Vital Signs Temperature (C) 36.6 C 04/25/18 15:52 Heart Rate 77 04/25/18 15:52 Respiratory Rate 17 04/25/18 15:52 Blood Pressure 178/131 H 04/25/18 15:52 O2 Sat (%) 94 04/25/18 15:52 O2 Delivery Mode Room Air Allergies/Adverse Reactions: No Known Allergies Allergy (Verified 04/25/18 15:54) Home Medications: Medication Instructions Recorded Acetaminophen [Tylenol ES 500 mg 1,000 mg PO Q8H PRN 04/25/18 (*)] Ibuprofen [Motrin (*)] 400 mg PO Q4H PRN 04/25/18 Ibuprofen/Diphenhydramine HCl 1 each PO HS PRN 04/25/18 [Advil Pm Liqui-Gels] Tamsulosin HCl [Flomax 0.4 MG (*)] 0.4 mg PO DAILY@1830 04/25/18 Travoprost Z 0.004% [Travatan Z 1 drops RTEYE HS 04/25/18 0.004% (*)] amLODIPine BESYLATE [Norvasc 5 mg 5 mg PO HS 04/25/18 (*)] Medical Decision Making - Diagnostics Imaging: I viewed and interpreted images myself - Diagnostics Imaging Results: Imaging Impressions Chest X-Ray 04/25/18 16:22 Impression: Probable basilar atelectasis without definite evidence of pneumonia. ED Course/Re-evaluation: Lactate normal. Initial temperature is 36.6 degrees and then repeat temperature was 38.6 degrees. Laboratory studies reveal elevated white blood cell count of 20,000. His creatinine is 1.7 on 04/17/2018 his creatinine was 1.6. Patient was started on 1 g of IV ceftriaxone. He will be admitted to the hospitalist, Dr. Anderson Xiong. I did speak with the on-call urologist for Dr. De Jesus, Dr. Zacarias, as he is aware that this patient will be admitted to the hospitalist. (Caryn Bailey) Differential Diagnosis: Including but not limited to urosepsis, urinary tract infection, pyelonephritis , kidney stone, pneumonia, influenza (Caryn Bailey) - Data Points Laboratory Results: Laboratory Results 04/25/18 16:15 04/25/18 16:15 04/25/18 04/25/18 04/25/18 16:40 16:24 16:15 WBC RBC Hgb Hct MCV MCH MCHC RDW Plt Count MPV Neut % (Auto) Lymph % (Auto) Preble % (Auto) Eos % (Auto) Baso % (Auto) Nucleat RBC Rel Count Absolute Neuts (auto) Absolute Lymphs (auto) Absolute Monos (auto) Absolute Eos (auto) Absolute Basos (auto) Absolute Nucleated RBC Immature Gran % Immature Gran # VBG Lactic Acid Sodium 135 mEq/L mEq/L (135-145) Potassium 4.4 mEq/L mEq/L (3.3-5.0) Chloride 99 mEq/L mEq/L (97-110) Carbon Dioxide 25 mEq/l mEq/l (22-31) Anion Gap 11 mEq/L mEq/L (8-16) BUN 31 mg/dL H mg/dL (7-23) Creatinine 1.7 mg/dL H mg/dL (0.7-1.3) Estimated GFR 39 Glucose 83 mg/dL mg/dL (70-100) POC Lactic Acid Kobe 1.0 mmol/L mmol/L (0.7-2.1) Calcium 9.2 mg/dL mg/dL (8.5-10.4) Urine Color RED Urine Appearance MODERATELY TURBID Urine pH 6.0 (5.0-7.5) Ur Specific Bath 1.012 (1.002-1.030) Urine Protein 2+ H (NEGATIVE) Urine Ketones NEGATIVE (NEGATIVE) Urine Blood 3+ H (NEGATIVE) Urine Nitrate NEGATIVE (NEGATIVE) Urine Bilirubin NEGATIVE (NEGATIVE) Urine Urobilinogen NEGATIVE EU EU (0.2-1.0) Ur Leukocyte Esterase 1+ H (NEGATIVE) Urine RBC 50-182 /hpf H /hpf (0-3) Urine WBC 50-182 /hpf H /hpf (0-3) Ur Epithelial Cells NONE SEEN /lpf /lpf (NONE-1+) Urine Glucose NEGATIVE (NEGATIVE) 04/25/18 04/25/18 16:15 16:15 WBC 20.13 10^3/uL H 10^3/uL (3.80-9.50) RBC 4.30 10^6/uL L 10^6/uL (4.40-6.38) Hgb 13.6 g/dL L g/dL (13.7-17.5) Hct 41.7 % % (40.0-51.0) MCV 97.0 fL fL (81.5-99.8) MCH 31.6 pg pg (27.9-34.1) MCHC 32.6 g/dL g/dL (32.4-36.7) RDW 12.5 % % (11.5-15.2) Plt Count 335 10^3/uL 10^3/uL (150-400) MPV 9.3 fL fL (8.7-11.7) Neut % (Auto) 88.9 % H % (39.3-74.2) Lymph % (Auto) 3.7 % L % (15.0-45.0) Preble % (Auto) 6.7 % % (4.5-13.0) Eos % (Auto) 0.1 % L % (0.6-7.6) Baso % (Auto) 0.2 % L % (0.3-1.7) Nucleat RBC Rel Count 0.0 % % (0.0-0.2) Absolute Neuts (auto) 17.88 10^3/uL H 10^3/uL (1.70-6.50) Absolute Lymphs (auto) 0.75 10^3/uL L 10^3/uL (1.00-3.00) Absolute Monos (auto) 1.35 10^3/uL H 10^3/uL (0.30-0.80) Absolute Eos (auto) 0.03 10^3/uL 10^3/uL (0.03-0.40) Absolute Basos (auto) 0.04 10^3/uL 10^3/uL (0.02-0.10) Absolute Nucleated RBC 0.00 10^3/uL 10^3/uL (0-0.01) Immature Gran % 0.4 % % (0.0-1.1) Immature Gran # 0.08 10^3/uL 10^3/uL (0.00-0.10) VBG Lactic Acid 1.3 mmol/L mmol/L (0.7-2.1) Sodium Potassium Chloride Carbon Dioxide Anion Gap BUN Creatinine Estimated GFR Glucose POC Lactic Acid Kobe Calcium Urine Color Urine Appearance Urine pH Ur Specific Bath Urine Protein Urine Ketones Urine Blood Urine Nitrate Urine Bilirubin Urine Urobilinogen Ur Leukocyte Esterase Urine RBC Urine WBC Ur Epithelial Cells Urine Glucose Medications Given: Acetaminophen (Tylenol) 1,000 mg PO Q8H PRN PRN Reason: Pain, Mild/Fever, Can Take PO Stop: 10/22/18 18:58 Last Admin: 04/25/18 20:30 Dose: 1,000 mg Amlodipine Besylate (Norvasc) 5 mg PO HS [facility] Stop: 10/22/18 20:59 Last Admin: 04/25/18 20:29 Dose: 5 mg Travoprost (Travatan Z 0.004%) 1 drops RTEYE HS NANO Stop: 10/22/18 20:59 Last Admin: 04/25/18 22:15 Dose: Not Given Discontinued Medications Ceftriaxone Sodium/Dextrose (Rocephin 1 Gm (Premix)) 50 mls @ 100 mls/hr IV EDNOW ONE PRN Reason: Protocol Stop: 04/25/18 18:13 Last Admin: 04/25/18 18:13 Dose: 50 mls Point of Care Test Results: Blood Gas/Lactic Acid-Venous 04/25/18 16:24 POC Lactic Acid Kobe 1.0 mmol/L mmol/L (0.7-2.1) Departure - Departure Disposition: [facility] In[facility] Acute Clinical Impression: Urinary tract infection Qualifiers: Urinary tract infection type: site unspecified Hematuria presence: without hematuria Qualified Code(s): N39.0 - Urinary tract infection, site not specified Fever Qualifiers: Fever type: unspecified Qualified Code(s): R50.9 - Fever, unspecified Condition: Good
[2018-04-25 17:34] LABS: PLATELET COUNT 335 10^3/uL (150-400)
[2018-04-25] MEDS ORDERED: ONDANSETRON 4 MG/2 ML VIAL IVP PRN (18:59)
[2018-04-25] MEDS ORDERED: ACETAMINOPHEN 325 MG TAB PO PRN (18:59)
[2018-04-25] MEDS ORDERED: PROMETHAZINE HCL 25 MG/ML INJ IVP PRN (18:59)
[2018-04-25] MEDS ORDERED: IBUPROFEN 200 MG TAB PO PRN (18:59)
--- NOTE | 2018-04-25 19:22 | GHP ---
[f rep st] HISTORY AND PHYSICAL DATE OF ADMISSION: 04/25/2018 CHIEF COMPLAINT: Fever and chills. HISTORY OF PRESENT ILLNESS: This is an 82-year-old male who was discharged from [facility] He alth on 04/17/2018, after he was found to have a bladder mass causing right hydronephrosis. The dayanara ent was discharged home with a Cuevas catheter. Today around noon, the patient developed some chills where he sat down and took some Tylenol. After that, he went to see his Urologist, Dr. De Jesus, who pe rformed a cystoscopy where he was found to have extreme irritation in his bladder as well as evidence of bladder mass. After the procedure, he was found to have a temperature of 101, and was sent to [facility] emergency department for further evaluation. His Cuevas catheter was changed today by his urologist . PAST MEDICAL HISTORY: 1. Macular degeneration. 2. BPH. 3. Hearing loss. 4. Lower GI bleed due to diverticulosis. 5. Internal hemorrhoids. 6. Recently diagnosed bladder mass. 7. Recently diagnosed hypertension. PAST SURGICAL HISTORY: 1. Tonsillectomy. 2. Adenoidectomy. 3. EGD and colonoscopy in 2018. HOME MEDICATIONS: Reviewed. Refer to [employer] for details. ALLERGIES: No known drug allergies. SOCIAL HISTORY: Lives in [place]. He denies any tobacco. He drinks beer occasionally. He denies a ny illicit drug use. FAMILY HISTORY: Father is due to coronary artery disease. Mother at the age of 98. REVIEW OF SYSTEMS: A comprehensive 10-point review of systems was done and was negative except for a s mentioned in the HPI. PHYSICAL EXAM: VITAL SIGNS: Blood pressure 161/85, pulse of 85, respiratory rate 16, O2 saturation 93% on room air, temperature 38.6. GENERAL: In no acute distress. HEAD: Normocephalic, atraumatic . EYES: PERRLA. Sclerae anicteric. MOUTH: Moist mucous membranes. NECK: Supple. No lymphadeno mary. CARDIOVASCULAR: S1, S2 no JVD. No lower extremity edema. PULMONARY: Lungs are clear. No wheezes, rales, or rhonchi. ABDOMEN: Soft, nontender, nondistended. No guarding or rebound tendern ess. Normoactive bowel sounds. : Cuevas catheter in place with a leg bag draining red tinged urin e. EXTREMITIES: No clubbing or cyanosis. NEURO: Cranial nerves II through XII grossly intact. No focal motor or sensory deficits. SKIN: Clear. No rashes. DIAGNOSTICS: WBC is 20, hemoglobin 13.6, hematocrit 41.7, platelets 335. Venous lactic acid 1.3. S odium 135, potassium 4.4, chloride 99, CO2 25, BUN 31, creatinine 1.7, glucose 83. UA: With 2+ prot ein, 3+ blood, 1+ leukocyte esterase, 50 to 182 WBCs and 50 to 182 RBCs. Bone scan done prior to hos pital discharge last week showed no definite pathologic uptake. Refer to report for full details. ASSESSMENT AND PLAN: This is an 82-year-old male recently diagnosed with a bladder mass status post outpatient cystoscopy today presenting with: 1. Sepsis due to urinary source. 2. Bladder mass. 3. Elevated creatinine. 4. Hypertension that was diagnosed last visit and recently started on amlodipine. PLAN: 1. Admit to Med Surg. 2. Will treat UTI with Rocephin 2 g IV daily and follow up urine cultures. 3. Monitor for signs and symptoms of severe sepsis and septic shock. 4. Will consult Dr. De Jesus, his Urologist, to help plan for further bladder tumor management and poss ible biopsy. The patient also still needs a CT, which has been held due to his renal insufficiency. 5. The patient requests to be DNR status. /[id number]/MODL
[2018-04-25] MEDS: amLODIPine BESYLATE 5 MG TAB PO SCH (20:29)
[2018-04-25] MEDS: ACETAMINOPHEN 500 MG TAB PO PRN (20:30)
[2018-04-25] MEDS: TRAVOPROST Z 0.004% 2.5 ML OPHT.BTL RTEYE SCH (22:15)
[2018-04-26 04:47] LABS: PLATELET COUNT 329 10^3/uL (150-400)
[2018-04-26] MEDS ORDERED: ENOXAPARIN 40 MG/0.4 ML SYR SC SCH (09:00)
--- NOTE | 2018-04-26 10:03 | ASMTCMCOM ---
CM Note CM Note Notes: Pt is current with [facility] for HC RN. CM will follow for add'l needs. Date Signed: 04/26/2018 10:02 AM Electronically Signed By:Marlene Blount LCSW
--- NOTE | 2018-04-26 15:00 | HOSPPROG ---
Hospitalist Progress Note Assessment/Plan: 82 yo M admitted w sepsis 2/2 urinary source sepsis: leukocytosis, fever and source uti: catheter changed in office ceftriaxone await culture data bladder mass: plan for biopsy vs resection on this admit proph: hold lmwh given need for possible procedures R hydro: perc neph tube dispo: inpt Subjective: case d/w dr han Objective: Vital Signs Temp Pulse Resp BP Pulse Ox 37.1 C 75 16 138/81 H 91 L 04/26/18 12:39 04/26/18 12:39 04/26/18 12:39 04/26/18 12:39 04/26/18 12:39 Laboratory Results 04/26/18 04:15 04/26/18 04:15 04/25/18 04/26/18 04/27/18 05:59 05:59 05:59 Intake Total 400 Output Total 850 Balance -450 - Physical Exam Constitutional: no apparent distress, appears nourished Eyes: PERRL, anicteric sclera Ears, Nose, Mouth, Throat: moist mucous membranes, hearing normal Cardiovascular: regular rate and rhythym, no murmur, rub, or gallop Respiratory: no respiratory distress, no rales or rhonchi Gastrointestinal: normoactive bowel sounds, soft, non-tender abdomen Genitourinary: no bladder fullness, No monte in urethra Skin: warm, normal color Musculoskeletal: full muscle strength Neurologic: AAOx3 ICD10 Worksheet Patient Problems: Problems Problem Status Onset Fever Acute Urinary tract infection Acute Bleeding Active DENISE (acute kidney injury) Acute Bladder malignancy Acute Obstruction of right ureter Acute
--- NOTE | 2018-04-26 15:18 | GCON ---
[f rep st] CONSULTATION DATE OF CONSULTATION: 04/26/2018 REASON FOR CONSULT: Urinary tract infection, bladder mass, kidney obstruction. HISTORY OF PRESENT ILLNESS: This is a pleasant 82-year-old male who was actually seen in our office for a cystoscopy, which he underwent without difficulty, but immediately thereafter developed sudden- onset fever and confusion. He was admitted to [facility] via the emergency room for further evaluation, and upon evaluation in the ER, it was found he likely has a urinary tract infecti on. He has been started on ceftriaxone, pending cultures. This patient has a pertinent history of a bladder mass, which was further evaluated and consistent with a possible bladder cancer on cystoscop y in the office, along with right-sided kidney obstruction previously seen on imaging from last hospi talization stay. PAST MEDICAL HISTORY: Macular degeneration, BPH, hearing loss, diverticulosis, hemorrhoids, bladder mass, hypertension, hydronephrosis. SURGICAL HISTORY: Tonsillectomy, adenoidectomy, EGD and colonoscopy in 2018. HOME MEDICATIONS: Please refer to [employer] for details. ALLERGIES: No known drug allergies. SOCIAL HISTORY: Lives in [place]. Daughter, who is at his bedside, lives here in [place]. Denies to bacco. Occasional beer drinking. No illicit drug use. FAMILY HISTORY: Not pertinent. REVIEW OF SYSTEMS: 10-point review of systems negative, except as mentioned in the HPI, with the add ition of fatigue. PHYSICAL EXAM: VITAL SIGNS: Blood pressure 138/81, respirations 16, O2 91 on room air, temperature 37.1. GENERAL: This is a somewhat ill-appearing man in no acute distress. HEENT: Normocephalic, a traumatic. Extraocular movements intact. NECK: Supple. No lymphadenopathy. Trachea midline. RES PIRATORY: No accessory respiratory muscle use. CARDIAC: Regular rate and rhythm. No lower extremi ty edema. No obvious JVD. GI: Abdomen was soft, nondistended, nontender to palpation. : No CVA tenderness. Bladder nontender to palpation. Catheter in place. INTEGUMENT: No obvious rashes or lesions. NEURO: Patient was alert and oriented. Affect appropriate to situation. LABS: His white blood cell count is 28.84, hemoglobin 12.6, hematocrit 37.4, platelets 329. Blood g as: His lactic acid is 1.3. Chemistry: Sodium 135, potassium 4.4, chloride 101, carbon dioxide 24, anion gap 10, BUN 27, creatinine 1.6, glucose 92. Urinalysis was positive for blood, white blood ce lls. Urine and blood culture pending. ASSESSMENT AND PLAN: Urinary tract infection, bladder mass, kidney obstruction. This case has been reviewed with Dr. De Jesus. Recommend that the patient consider having a percutaneous tube to help reli antonio obstruction in the right kidney, which he agrees to. Discussed recommendation for transurethral resection of bladder tumor once patient's infection has been managed in the future. Discussed possib le need for more aggressive surgical measures pending results of the transurethral resection of bladd er tumor. At this point, patient and his daughter are declining significant surgical intervention, b nh do approve of a percutaneous tube along with transurethral resection of bladder tumor in the futur e. /[id number]/MODL
[2018-04-26 16:07] LABS: INR 1.29 (0.83-1.16); PROTIME(PATIENT) 16.3 SEC (12.0-15.0)
[2018-04-26] MEDS: TAMSULOSIN HCL 0.4 MG CAP PO SCH (18:36)
[2018-04-26] MEDS: amLODIPine BESYLATE 5 MG TAB PO SCH (20:42)
[2018-04-26] MEDS: TRAVOPROST Z 0.004% 2.5 ML OPHT.BTL RTEYE SCH (20:44)
[2018-04-26] MEDS: ZOLPIDEM TARTRATE 5 MG TAB PO PRN (22:23)
[2018-04-27] MEDS: ACETAMINOPHEN 500 MG TAB PO PRN (02:42)
[2018-04-27 04:39] LABS: PLATELET COUNT 286 10^3/uL (150-400)
[2018-04-27 04:48] LABS: INR 1.3 (0.83-1.16); PROTIME(PATIENT) 16.4 SEC (12.0-15.0)
[2018-04-27] MEDS ORDERED: fentaNYL 100 MCG/2 ML INJ IVP PRN (07:08)
[2018-04-27] MEDS ORDERED: FLUMAZENIL 0.5 MG/5 ML MDV IVP PRN (07:08)
[2018-04-27] MEDS ORDERED: NALOXONE HCL 0.4 MG/ML INJ IVP PRN (07:08)
[2018-04-27] MEDS ORDERED: MEPERIDINE 25 MG/ML SYR IVP PRN (07:08)
[2018-04-27] MEDS ORDERED: MIDAZOLAM 2 MG/2 ML VIAL IVP PRN (07:08)
[2018-04-27] MEDS ORDERED: NS 1,000 ML IV SCH ×2 (07:15)
[2018-04-27] MEDS ORDERED: cefTAZidime PENTAHYDRATE 1 GM in NS 50 ML IV SCH (08:57)
[2018-04-27] MEDS ORDERED: CEFEPIME HCL 1 GM in NS 50 ML IV SCH (09:00)
--- NOTE | 2018-04-27 10:22 | PDMN ---
Medical Necessity Medical necessity: Change to IP, as of 04/26/18, per & MCG M-160-RRG; los >2 mn for ongoing management of sepsis secondary to UTI & bladder mass; admit for further monitoring, IV abx, IVFs & Urology consult w/biopsy vs resection; per progress note & order 04/26/18
[2018-04-27] MEDS ORDERED: LIDOCAINE 1% 300 MG/30 ML SDV ONE (12:11)
[2018-04-27] MEDS ORDERED: IOPAMIDOL (ISOVUE-300) 100 ML BTL ONE (12:11)
--- NOTE | 2018-04-27 12:21 | PDRADPRE ---
Radiology History & Physical Indication for procedure: cancer Home medications: Acetaminophen [Tylenol ES 500 mg (*)] 1,000 mg PO Q8H PRN 04/25/18 [Last Taken Unknown] Ibuprofen [Motrin (*)] 400 mg PO Q4H PRN 04/25/18 [Last Taken 04/25/18] Ibuprofen/Diphenhydramine HCl [Advil Pm Liqui-Gels] 1 each PO HS PRN 04/25/18 [ Last Taken 04/24/18] Tamsulosin HCl [Flomax 0.4 MG (*)] 0.4 mg PO DAILY@1830 04/25/18 [Last Taken ] Travoprost Z 0.004% [Travatan Z 0.004% (*)] 1 drops RTEYE HS 04/25/18 [Last Taken 04/24/18] amLODIPine BESYLATE [Norvasc 5 mg (*)] 5 mg PO HS 04/25/18 [Last Taken 04/24/18] Allergies/Adverse Reactions: No Known Allergies Allergy (Verified 04/25/18 15:54) Mental status: A&Ox3 Heart exam: regular rate and rhythm Mallampati Score: Class 2
--- NOTE | 2018-04-27 12:23 | PDRADPN ---
Radiology Procedure Note Date of Procedure: 04/27/18 Radiologist: Andrew Santos Anesthesia: IV Sedation Pre-op Diagnosis: right hydronephrosis Post-op Diagnosis: same Procedure: right nephrostomy tube placement Finding(s): Multiple perirenal cysts, mildly dilated renal system Inf/Abcess present in the surg proc area at time of surgery?: No EBL: Minimal Drains: Nephrostomy
[2018-04-27] MEDS: CEFEPIME HCL 1 GM in NS 50 ML IV SCH ×2 (12:56→22:22)
--- NOTE | 2018-04-27 13:40 | SOAPPROG ---
SOAP Progress Note Assessment/Plan: Assessment: Sepsis Bladder mass Renal obstruction Plan: Antibiotics per culture. Will plan for TURBT in the next few weeks after patient has recovered from infection. Appreciate placement of perc tube. 04/27/18 13:39 Subjective: Feels better today aand ready for d/c Objective: Vital Signs Temp Pulse Resp BP Pulse Ox 36.8 C 59 L 18 132/63 H 99 04/27/18 08:27 04/27/18 08:27 04/27/18 08:27 04/27/18 12:10 04/27/18 12:11 Laboratory Results 04/27/18 04:28 04/27/18 04:28 04/26/18 04/27/18 04/28/18 05:59 05:59 05:59 Intake Total 894 Output Total 775 250 Balance 119 -250 PT 16.4 SEC (12.0-15.0) H 04/27/18 04:28 INR 1.30 (0.83-1.16) H 04/27/18 04:28 Physical Exam - Physical Exam General Appearance: alert, no apparent distress Respiratory: normal breath sounds Abdomen: other (right sided perc tube with mildly bloody urine) ICD10 Worksheet Patient Problems: Problems Problem Status Onset Fever Acute Urinary tract infection Acute Bleeding Active DENISE (acute kidney injury) Acute Bladder malignancy Acute Obstruction of right ureter Acute
--- NOTE | 2018-04-27 14:23 | HOSPPROG ---
Hospitalist Progress Note Assessment/Plan: 82 yo M admitted w sepsis 2/2 urinary source sepsis: leukocytosis, fever and source septic physiology has resolved uti: urine growing guillen sens psuedomonas switched to cefepime bladder mass: plan for biopsy vs resection after clearance of infection proph: hold lmwh given need for possible procedures R hydro: perc neph tube today hyponatremia: give 1 L NS- suspected hypovolemic AHRF: atelectasis I suspect dispo: inpt Subjective: case d/w brina patricia, urology PA. s/p percutaneous nephrostomy tube Objective: Vital Signs Temp Pulse Resp BP Pulse Ox 36.5 C 72 16 143/69 H 96 04/27/18 13:00 04/27/18 14:04 04/27/18 14:04 04/27/18 14:04 04/27/18 14:04 Laboratory Results 04/27/18 04:28 04/27/18 04:28 04/26/18 04/27/18 04/28/18 05:59 05:59 05:59 Intake Total 894 Output Total 775 250 Balance 119 -250 PT 16.4 SEC (12.0-15.0) H 04/27/18 04:28 INR 1.30 (0.83-1.16) H 04/27/18 04:28 - Physical Exam Constitutional: no apparent distress, appears nourished Eyes: PERRL, anicteric sclera Ears, Nose, Mouth, Throat: moist mucous membranes, hearing normal Cardiovascular: regular rate and rhythym, no murmur, rub, or gallop, other ( crackles that clear w coughing) Respiratory: no respiratory distress, no rales or rhonchi Gastrointestinal: normoactive bowel sounds, soft, non-tender abdomen Genitourinary: no bladder fullness, monte in urethra Skin: warm, normal color Musculoskeletal: full muscle strength, no muscle tenderness Neurologic: AAOx3, sensation intact bilaterally ICD10 Worksheet Patient Problems: Problems Problem Status Onset Fever Acute Urinary tract infection Acute Bleeding Active DENISE (acute kidney injury) Acute Bladder malignancy Acute Obstruction of right ureter Acute
[2018-04-27] MEDS ORDERED: NS 1,000 ML IV ONE (17:45)
[2018-04-27] MEDS ORDERED: NS 250 ML IV ONE ×2 (17:45)
[2018-04-27] MEDS: TAMSULOSIN HCL 0.4 MG CAP PO SCH (18:23)
[2018-04-27] MEDS: ZOLPIDEM TARTRATE 5 MG TAB PO PRN (22:25)
[2018-04-27] MEDS: amLODIPine BESYLATE 5 MG TAB PO SCH (22:25)
[2018-04-27] MEDS: TRAVOPROST Z 0.004% 2.5 ML OPHT.BTL RTEYE SCH (22:30)
[2018-04-28] MEDS: CEFEPIME HCL 1 GM in NS 50 ML IV SCH ×2 (09:13→21:50)
--- NOTE | 2018-04-28 10:09 | ASMTCMCOM ---
CM Note CM Note Notes: Pt ready for DC today. Alerted [facility] for restart of HC RN. Date Signed: 04/28/2018 10:08 AM Electronically Signed By:Marlene Blount LCSW
[2018-04-28 13:14] LABS: PLATELET COUNT 313 10^3/uL (150-400)
--- NOTE | 2018-04-28 14:40 | HOSPPROG ---
Hospitalist Progress Note Assessment/Plan: 82 yo M admitted w sepsis 2/2 urinary source sepsis: leukocytosis, fever and source septic physiology has resolved uti: urine growing guillen sens psuedomonas switched to cefepime bladder mass: plan for biopsy vs resection after clearance of infection proph: hold lmwh given need for possible procedures R hydro: perc neph tube today hyponatremia: give 1 L NS- suspected hypovolemic AHRF: atelectasis I suspect dispo: inpt Subjective: anxious for dc. afebrile Objective: Vital Signs Temp Pulse Resp BP Pulse Ox 36.6 C 57 L 16 125/67 H 93 04/28/18 13:14 04/28/18 13:14 04/28/18 13:14 04/28/18 13:14 04/28/18 13:14 Laboratory Results 04/28/18 11:20 04/28/18 11:20 04/27/18 04/28/18 04/29/18 05:59 05:59 05:59 Intake Total 894 450 Output Total 775 2550 550 Balance 119 -2100 -550 PT 16.4 SEC (12.0-15.0) H 04/27/18 04:28 INR 1.30 (0.83-1.16) H 04/27/18 04:28 - Physical Exam Constitutional: no apparent distress, appears nourished Eyes: PERRL, anicteric sclera Ears, Nose, Mouth, Throat: moist mucous membranes, hearing normal Cardiovascular: regular rate and rhythym, no murmur, rub, or gallop Respiratory: no respiratory distress, no rales or rhonchi Gastrointestinal: normoactive bowel sounds, soft, non-tender abdomen Genitourinary: no bladder fullness, monte in urethra Skin: warm, normal color Musculoskeletal: full muscle strength ICD10 Worksheet Patient Problems: Problems Problem Status Onset Fever Acute Urinary tract infection Acute Bleeding Active DENISE (acute kidney injury) Acute Bladder malignancy Acute Obstruction of right ureter Acute
--- NOTE | 2018-04-28 15:51 | ASMTCMCOM ---
CM Note CM Note Notes: Pt will likely be ready for DC tomorrow. After meeting with a deputy sheriff court services, pt decided he is interested in palliative care and would like to meet with someone to discuss it at his home. faxed referral to [facility]. Pt will also continue with [facility] RN at [place]. CM to follow.. Date Signed: 04/28/2018 03:50 PM Electronically Signed By:Marlene Blount LCSW
[2018-04-28] MEDS: TAMSULOSIN HCL 0.4 MG CAP PO SCH (19:07)
[2018-04-28] MEDS: amLODIPine BESYLATE 5 MG TAB PO SCH (21:51)
[2018-04-28] MEDS: ZOLPIDEM TARTRATE 5 MG TAB PO PRN (21:51)
[2018-04-28] MEDS: TRAVOPROST Z 0.004% 2.5 ML OPHT.BTL RTEYE SCH (21:52)
[2018-04-29 04:47] VITALS: BP 152/75
[2018-04-29] MEDS: CEFEPIME HCL 1 GM in NS 50 ML IV SCH (09:45)
--- NOTE | 2018-04-29 10:15 | HOSPPROG ---
Hospitalist Progress Note Assessment/Plan: 82 yo M admitted w sepsis 2/2 urinary source sepsis: leukocytosis, fever and source septic physiology has resolved uti: urine growing guillen sens pseudomonas switched to cefepime bladder mass: plan for biopsy vs resection after clearance of infection proph: hold lmwh given need for possible procedures R hydro: perc neph tube today hyponatremia: give 1 L NS- suspected hypovolemic AHRF: atelectasis I suspect dispo: home today > 30 minutes see dc summary Subjective: anxious for dc. afebrile Objective: Vital Signs Temp Pulse Resp BP Pulse Ox 36.6 C 62 16 152/75 H 94 04/29/18 07:39 04/29/18 07:39 04/29/18 07:39 04/29/18 07:39 04/29/18 07:39 Laboratory Results 04/28/18 11:20 04/28/18 11:20 04/28/18 04/29/18 04/30/18 05:59 05:59 05:59 Intake Total 450 1650 435 Output Total 2550 2475 375 Balance -2100 -825 60 PT 16.4 SEC (12.0-15.0) H 04/27/18 04:28 INR 1.30 (0.83-1.16) H 04/27/18 04:28 - Physical Exam Constitutional: no apparent distress, appears nourished Eyes: PERRL, anicteric sclera Ears, Nose, Mouth, Throat: moist mucous membranes, hearing normal Cardiovascular: regular rate and rhythym, no murmur, rub, or gallop Respiratory: no respiratory distress, no rales or rhonchi Gastrointestinal: normoactive bowel sounds, soft, non-tender abdomen Genitourinary: no bladder fullness, monte in urethra Skin: warm, normal color Musculoskeletal: full muscle strength, no muscle tenderness Neurologic: AAOx3 Psychiatric: interacting appropriately Lymph, Heme, Immunologic: no cervical LAD ICD10 Worksheet Patient Problems: Problems Problem Status Onset Fever Acute Urinary tract infection Acute Bleeding Active DENISE (acute kidney injury) Acute Bladder malignancy Acute Obstruction of right ureter Acute
--- NOTE | 2018-04-29 10:22 | PDIAF ---
- Diagnosis Diagnosis: urinary obstruction Code Status: Do Not Resuscitate - Medication Management Discharge Medications: Medications to Continue on Transfer Acetaminophen [Tylenol ES 500 mg (*)] 1,000 mg PO Q8H PRN 04/25/18 [Last Taken Unknown] Ibuprofen [Motrin (*)] 400 mg PO Q4H PRN 04/25/18 [Last Taken 04/25/18] Ibuprofen/Diphenhydramine HCl [Advil Pm Liqui-Gels] 1 each PO HS PRN 04/25/18 [ Last Taken 04/24/18] Tamsulosin HCl [Flomax 0.4 MG (*)] 0.4 mg PO DAILY@1830 04/25/18 [Last Taken ] Travoprost Z 0.004% [Travatan Z 0.004% (*)] 1 drops RTEYE HS 04/25/18 [Last Taken 04/24/18] amLODIPine BESYLATE [Norvasc 5 mg (*)] 5 mg PO HS 04/25/18 [Last Taken 04/24/18] levOFLOXACIN [Levofloxacin] 750 mg PO DAILY #10 tablet 04/29/18 [Last Taken Unknown] Discharge Medications: Refer to the Discharge Home Medication list for PRN reason. - Orders Services needed: Registered Nurse - Follow Up Care Current Providers and Referrals: JULIAN HUDDLESTON [Other] - As per Instructions Edil De Jesus MD [Medical Doctor] -
--- NOTE | 2018-04-29 10:46 | GDS ---
[f rep st] DISCHARGE SUMMARY DISCHARGE DIAGNOSES: 1. Sepsis of urinary source. 2. Complicated urinary tract infection with pansensitive Pseudomonas. 3. Bladder mass. 4. Right hydronephrosis, status post percutaneous nephrostomy tube. 5. Hearing loss. 6. Macular degeneration. Please see admission history and physical by Dr. Anderson Xiong. The patient presented with fever and ch ills. He saw Dr. De Jesus just prior to admission, who performed a cystoscopy. He has had irritation o f his bladder, as well as the previously known bladder mass. He had a Cuevas changed at that time. H e was initiated on ceftriaxone. Urine grew back Pseudomonas. He was started on cefepime. It was no kathia to be pansensitive, including fluoroquinolone sensitive. The patient had a marked leukocytosis w hile here of 20, peaking at 28. It has trended down to 11. He has been afebrile. He has negative b lood cultures. He is discharged home with outpatient followup. He currently has a Cuevas catheter in with plans for urology followup for transient urethral resection of a bladder tumor. He has a percu taneous nephrostomy tube in as well. The patient demonstrated understanding of the plan. /[id number]/MODL
--- NOTE | 2018-04-29 11:04 | ASMTCMCOM ---
CM Note CM Note Notes: Pt ready for DC today. [facility] and [facility] alerted. Date Signed: 04/29/2018 11:03 AM Electronically Signed By:Marlene Blount LCSW
--- NOTE | 2018-04-29 14:31 | ASDISCHSUM ---
Discharge Information Plan Status:Home with Home Health Medically Cleared to Leave: Discharge Date:04/29/2018 12:17 PM D/C Disposition:Home Health Service ADT D/C Disposition:Home, Routine, Self-Care Projected Discharge Date:04/29/2018 11:00 AM Transportation at D/C: Discharge Delay Reason: Follow-Up Date:04/29/2018 11:00 AM Discharge Slot: Final Diagnosis: Placement Information Referral Type:*Home Health Care Services Referral ID:[id number] Provider Name:[facility] Care Address 1:[address] [address] Address 2: City:[place] Selection Factors: State:[place] Referral Type:Palliative Care Referral ID:[id number] Provider Name:[facility] Address 1:[address] Phone Number: Address 2: Fax Number: [facility]:[place] Selection Factors: State:[place] Patient Contact Information Contact Name:JUNIOR Relationship:Daughter Address:[address] Work Phone: City:[place] Alternate Phone: State/Zip Code:[place] [address] Email: Financial Information Financial Class:Medicare Advantage Plans Primary Plan Desc:[employer] [place] MEDICARE Primary Plan Number:[id number] Secondary Plan Desc: Secondary Plan Number: Assessment Information [facility] CM Progress Note CM Note CM Note Notes: Pt is current with [facility] for HC RN. CM will follow for add'l needs. Date Signed: 04/26/2018 10:02 AM Electronically Signed By:Marlene Blount LCSW [facility] CM Progress Note CM Note CM Note Notes: Pt ready for DC today. Alerted [facility] for restart of HC RN. Date Signed: 04/28/2018 10:08 AM Electronically Signed By:Marlene Blount LCSW [facility] CM Progress Note CM Note CM Note Notes: Pt will likely be ready for DC tomorrow. After meeting with a assistant professor of spanish, pt decided he is interested in palliative care and would like to meet with someone to discuss it at his home. faxed referral to [facility]. Pt will also continue with [facility] RN at [place]. CM to follow.. Date Signed: 04/28/2018 03:50 PM Electronically Signed By:Marlene Blount LCSW [facility] CM Progress Note CM Note CM Note Notes: Pt ready for DC today. [facility] and [facility] alerted. Date Signed: 04/29/2018 11:03 AM Electronically Signed By:Marlene Blount LCSW Intervention Information
== END 2018-04-29 12:17 | disposition home or self-care (01) | DRG 872 ==
LOC: INTOOBSV 17:47 → F1N 18:47 → OBSVTOIN 04-26 16:19
PROVIDERS: ADMIT Family Medicine; ATTEND Family Medicine
PROC: 0T9030Z Drainage of Right Kidney with Drainage Device, Percutaneous Approach (ICD-10-PCS; principal; 2018-04-27)
DX: A41.89 Other specified sepsis (principal); N39.0 Urinary tract infection, site not specified; N13.30 Unspecified hydronephrosis; D41.4 Neoplasm of uncertain behavior of bladder; B96.5 Pseudomonas (aeruginosa) (mallei) (pseudomallei) as the cause of diseases classified elsewhere; H91.90 Unspecified hearing loss, unspecified ear; H35.30 Unspecified macular degeneration; N40.1 Benign prostatic hyperplasia with lower urinary tract symptoms; I10 Essential (primary) hypertension; Z66 Do not resuscitate
CPT/HCPCS: 83605-PO; 96365; 97161-GP; 97165-GO; C1729; C1769; G0378; J0692; J0696; J1644; J1650; J2250; J2310; J3010; Q9967

== ENCOUNTER 2018-05-01 17:06 | Emergency (ER) | payer OTHER ==
--- NOTE | 2018-05-01 17:28 | EDPHY ---
H & P Stated Complaint: hx bladder tunors/monte placed 04/25 now hematuria and blocked Time Seen by Provider: 05/01/18 17:20 HPI/ROS: CHIEF COMPLAINT: Monte catheter problem HISTORY OF PRESENT ILLNESS: The patient is an 82-year-old man with a known bladder mass who was recently hospitalized for urinary tract infection and has a right-sided nephrostomy tubes well as a Monte catheter. His family states that about to 3 hours ago his Monte catheter stopped draining urine. They called the urologist office who told him to come here. On the way here started draining again but is now bloody. No leaking from around. No abdominal pain, no vomiting. No fever. REVIEW OF SYSTEMS: Constitutional: denies: chills, fever, recent illness, recent injury EENTM: denies: blurred vision, double vision, nose congestion Respiratory: denies: cough, shortness of breath Cardiac: denies: chest pain, irregular heart rate, lightheadedness, palpitations Gastrointestinal/Abdominal: denies: abdominal pain, diarrhea, nausea, vomiting, blood streaked stools Genitourinary: See HPI Musculoskeletal: denies: joint pain, muscle pain Skin: denies: lesions, rash, jaundice, bruising Neurological: denies: headache, numbness, paresthesia, tingling, dizziness, weakness Hematologic/Lymphatic: denies: blood clots, easy bleeding, easy bruising Immunologic/allergic: denies: HIV/AIDS, transplant EXAM: GENERAL: Well-appearing, well-nourished and in no acute distress. HEAD: Atraumatic, normocephalic. EYES: Pupils equal round and reactive to light, extraocular movements intact, sclera anicteric, conjunctiva are normal. ENT: TMs normal, nares patent, oropharynx clear without exudates. Moist mucous membranes. NECK: Normal range of motion, supple without lymphadenopathy or JVD. LUNGS: Breath sounds clear to auscultation bilaterally and equal. No wheezes rales or rhonchi. HEART: Regular rate and rhythm without murmurs, rubs or gallops. ABDOMEN: Soft, nontender, normoactive bowel sounds. No guarding, no rebound. No masses appreciated. Monte catheter in place, no leaking from around tip. Fruit punch colored urine. No visible clots. BACK: Nephrostomy tube in place, draining yellow fluid, nonbloody No CVA tenderness, no spinal tenderness, step-offs or deformities EXTREMITIES: Normal range of motion, no pitting or edema. No clubbing or cyanosis. NEUROLOGICAL: Cranial nerves II through XII grossly intact. Normal speech, normal gait. 5/5 strength, normal movement in all extremities, normal sensation PSYCH: Normal mood, normal affect. SKIN: Warm, dry, normal turgor, no visible rashes or lesions. Source: Patient Exam Limitations: No limitations - Personal History Current Tetanus Diphtheria and Acellular Pertussis (TDAP): Yes Tetanus Vaccine Date: 07/11 - Medical/Surgical History Hx Asthma: No Hx Chronic Respiratory Disease: No Hx Diabetes: No Hx Cardiac Disease: No Hx Renal Disease: Yes Hx Cirrhosis: No Hx Alcoholism: No Hx HIV/AIDS: No Hx Splenectomy or Spleen Trauma: No Other PMH: TONSIL, ADENOIDS, EYE , macular degeneration, STRAIGHTENING, diverticulitis, broken pelvis, right broken arm - Family History Significant Family History: No pertinent family hx - Social History Smoking Status: Never smoked Alcohol Use: None Constitutional: Initial Vital Signs Temperature (C) 36.4 C 05/01/18 17:13 Heart Rate 58 L 05/01/18 17:13 Respiratory Rate 18 05/01/18 17:13 Blood Pressure 168/78 H 05/01/18 17:13 O2 Sat (%) 96 05/01/18 17:13 O2 Delivery Mode Room Air Allergies/Adverse Reactions: No Known Allergies Allergy (Verified 05/01/18 17:13) Home Medications: Medication Instructions Recorded Acetaminophen [Tylenol ES 500 mg 1,000 mg PO Q8H PRN 04/25/18 (*)] Ibuprofen [Motrin (*)] 400 mg PO Q4H PRN 04/25/18 Ibuprofen/Diphenhydramine HCl 1 each PO HS PRN 04/25/18 [Advil Pm Liqui-Gels] Tamsulosin HCl [Flomax 0.4 MG (*)] 0.4 mg PO DAILY@1830 04/25/18 Travoprost Z 0.004% [Travatan Z 1 drops RTEYE HS 04/25/18 0.004% (*)] amLODIPine BESYLATE [Norvasc 5 mg 5 mg PO HS 04/25/18 (*)] levOFLOXACIN [Levofloxacin] 750 mg PO DAILY #10 tablet 04/29/18 Medical Decision Making ED Course/Re-evaluation: 6:00 p.m. the patient's Monte catheter was flushed easily with several L of saline. He tolerated this well. Several small clots were obtained. The urine cleared. Family is reassured and they feel eager to go home. They declined further testing or workup. They would like to try this procedure at home if needed. Differential Diagnosis: Partial list of the Differential diagnosis considered include but were not limited to; Monte catheter obstruction, hematuria, bladder mass and although unlikely based on the history and physical exam, I also considered infection, DVT, trauma. I discussed these differential diagnoses and the plan with the patient as well as the usual and expected course. The patient understands that the diagnosis is provisional and that in medicine we are not always correct and that further workup is often warranted. Usual and customary warnings were given. All of the patient's questions were answered. The patient was instructed to return to the emergency department should the symptoms at all worsen or return, otherwise to followup with the physician as we discussed. Departure - Departure Disposition: Home, Routine, Self-Care Clinical Impression: Bladder malignancy Qualifiers: Bladder location: unspecified site Qualified Code(s): C67.9 - Malignant neoplasm of bladder, unspecified Monte catheter problem Qualifiers: Encounter type: initial encounter Qualified Code(s): T83.9XXA - Unspecified complication of genitourinary prosthetic device, implant and graft, initial encounter Condition: Fair Instructions: Monte Catheter Placement and Care (ED) Referrals: NONE *PRIMARY CARE P,. [Primary Care Provider] - As per Instructions Edil De Jesus MD [Medical Doctor] - As per Instructions
[2018-05-01 18:29] VITALS: BP 168/88
== END 2018-05-01 18:29 | disposition home or self-care (01) ==
DX: T83.091A Other mechanical complication of indwelling urethral catheter, initial encounter (principal); C67.9 Malignant neoplasm of bladder, unspecified; Y73.2 Prosthetic and other implants, materials and accessory gastroenterology and urology devices associated with adverse incidents

== ENCOUNTER 2018-05-11 06:56 | Observation (INO) | payer OTHER ==
--- NOTE | 2018-05-10 15:06 | GHP ---
[f rep st] PREOP HISTORY AND PHYSICAL ADMISSION DIAGNOSIS: Bladder cancer. HISTORY OF PRESENT ILLNESS: This is an 82-year-old gentleman who has had bladder cancer. He has been complicated having a right hydronephrosis with nephrostomy tube placement and urinary retention with urosepsis. At the present time, he is admitted for transurethral resection of a large bladder tumor. Indications, complications have been discussed. Written and verbal consent was obtained. PAST MEDICAL HISTORY: He has had BPH, bladder cancer, glaucoma, hypertension, hydronephrosis. He has also had a renal mass. PAST SURGICAL HISTORY: Tonsillectomy and eye surgery. MEDICATIONS: Advil, Ambien, amlodipine, Norvasc. ALLERGIES: No known drug allergies. FAMILY HISTORY: Positive for prostate cancer, hypertension, heart disease. SOCIAL HISTORY: Non drinker. . Nonsmoker. REVIEW OF SYSTEMS: Negative cardiac, respiratory, GI and endocrine. PHYSICAL EXAMINATION: VITAL SIGNS: Stable. CHEST: Clear. HEART: Regular rate and rhythm. ABDOMEN: Normal. No organomegaly, rebound or guarding. EXTREMITIES: Lower extremities are normal. He is admitted for the above procedure. /[id number]/MODL MTDD
[2018-05-11] MEDS ORDERED: LR 1,000 ML IV ONE (07:43)
[2018-05-11] MEDS ORDERED: LIDOCAINE 1% 2 ML INJ ID PRN (07:43)
[2018-05-11] MEDS ORDERED: ONDANSETRON 4 MG/2 ML VIAL IVP PRN ×3 (07:55→10:11)
[2018-05-11] MEDS ORDERED: NALOXONE HCL 0.4 MG/ML INJ IVP PRN ×2 (07:55→09:30)
[2018-05-11] MEDS ORDERED: ACETAMINOPHEN 500 MG TAB PO PRN ×3 (07:55→17:12)
[2018-05-11] MEDS ORDERED: HYDROmorphONE/DILAUDID 1 MG/ML INJ IVP PRN (07:55)
[2018-05-11] MEDS ORDERED: LR 500 ML IV PRN ×2 (07:55→09:30)
[2018-05-11] MEDS ORDERED: PHENYLEPHRINE HCL 100 MCG/ML SYR IVP PRN ×2 (07:55→09:30)
[2018-05-11] MEDS ORDERED: fentaNYL 100 MCG/2 ML INJ IVP PRN ×2 (07:55→09:30)
[2018-05-11] MEDS ORDERED: oxyCODONE IR 5 MG TAB PO PRN (07:55)
--- NOTE | 2018-05-11 07:55 | PDANEPAE ---
ANE History of Present Illness 82 year old male for TURBT. ANE Past Medical History - Cardiovascular History Hx Hypertension: Yes Hx Arrhythmias: No Hx Chest Pain: No Hx Coronary Artery / Peripheral Vascular Disease: No Hx CHF / Valvular Disease: No Hx Palpitations: No - Pulmonary History Hx COPD: No Hx Asthma/Reactive Airway Disease: No Hx Recent Upper Respiratory Infection: No Hx Oxygen in Use at Home: No Hx Sleep Apnea: No - Neurologic History Hx Cerebrovascular Accident: No Hx Seizures: No Hx Dementia: No - Endocrine History Hx Diabetes: No Obesity: no - Renal History Renal History Comment: Patient has renal mass - Cancer History Hx Cancer: Yes Cancer History Comment: Prostate Cancer. Bladder Cancer - Congenital Disorder History Hx Congenital Disorders: No - GI History GERD: no Hx Gastrointestinal Disorders: No ANE Review of Systems Review of systems is: negative Review of Systems: - Exercise capacity Exercise capacity: <4 METS ANE Patient History - Allergies Allergies/Adverse Reactions: No Known Allergies Allergy (Verified 05/11/18 07:54) - Home Medications Home medications: home medication list seen and reviewed Home Medications: Acetaminophen [Tylenol ES 500 mg (*)] 1,000 mg PO Q8H PRN 04/25/18 [Last Taken 04/27/18] Ibuprofen [Motrin (*)] 400 mg PO Q4H PRN 04/25/18 [Last Taken 05/02/18] Ibuprofen/Diphenhydramine HCl [Advil Pm Liqui-Gels] 1 each PO HS PRN 04/25/18 [ Last Taken 05/03/18] Tamsulosin HCl [Flomax 0.4 MG (*)] 0.4 mg PO DAILY@1830 04/25/18 [Last Taken 04/17] Travoprost Z 0.004% [Travatan Z 0.004% (*)] 1 drops RTEYE HS 04/25/18 [Last Taken 05/10/18] amLODIPine BESYLATE [Norvasc 5 mg (*)] 5 mg PO HS 04/25/18 [Last Taken 05/10/18 19:00] - NPO status NPO Status: no food or drink >8 hours - Anes Hx Anes Hx: no prior problems - Smoking Hx Smoking Status: Never smoked Marijuana use: No - Alcohol Use Alcohol Use: Rarely - Family Anes Hx Family Anes Hx: neg - N/A ANE Labs/Vital Signs - Vital Signs Vital Signs: reviewed preoperatively; see RN documention for details Height: 170.18 cm Weight: 68.039 kg ANE Physical Exam - Airway Neck exam: FROM Mallampati Score: Class 2 Mouth image: 1 - Bonded - Pulmonary Pulmonary: no respiratory distress - Cardiovascular Cardiovascular: regular rate and rhythym - ASA Status ASA Status: III ANE Anesthesia Plan Anesthesia Plan: general endotracheal anesthesia Total IV Anesthesia: No
[2018-05-11] MEDS ORDERED: ceFAZolin 2 GM/DEXTROSE 100 ML IV ONE (08:24)
--- NOTE | 2018-05-11 08:25 | PDHPUP ---
History & Physical Update H&P update statement: This history and physical update is based on an assessment of the patient which was completed after admission or registration (within 24 hours), but prior to the surgery/procedure. H&P update: H&P reviewed & patient examined, no change in patient's condition since H&P completed
[2018-05-11] MEDS ORDERED: LIDOCAINE 2% JELLY 20 ML (UROJECT) ONE ×2 (08:31→08:35)
[2018-05-11] MEDS ORDERED: fentaNYL 100 MCG/2 ML INJ ONE ×2 (08:54→10:38)
[2018-05-11] MEDS ORDERED: PROPOFOL 200 MG/20 ML VIAL ONE (08:55)
[2018-05-11] MEDS ORDERED: LIDOCAINE 2% 5 ML SDV ONE (08:56)
[2018-05-11] MEDS ORDERED: ROCURONIUM 50 MG/5 ML VIAL ONE (08:56)
[2018-05-11] MEDS ORDERED: ONDANSETRON 4 MG/2 ML VIAL ONE (09:11)
[2018-05-11] MEDS ORDERED: DEXAMETHASONE 4 MG/ML VIAL ONE (09:11)
[2018-05-11] MEDS ORDERED: HYDROCODONE/APAP 5/325 TAB PO PRN (09:30)
[2018-05-11] MEDS ORDERED: ONDANSETRON DISINTEGRATING 4 MG TAB PO PRN (10:11)
[2018-05-11] MEDS ORDERED: ACETAMINOPHEN 325 MG TAB PO PRN (10:11)
[2018-05-11] MEDS ORDERED: OPIUM/BELLADONNA ALKALO SUPP PR PRN (10:11)
--- NOTE | 2018-05-11 10:20 | POSTOPPROG ---
Post Op Note Date of Operation: 05/11/18 Surgeon: Edil De Jesus Anesthesia: GET(General Endotracheal) Pre-op Diagnosis: bladder cancer Post-op Diagnosis: same Indication: same Procedure: turbt Findings: bladder cancer Inf/Abcess present in the surg proc area at time of surgery?: No EBL: 50-100 Complications: none--dictated--discussed with daughter Specimen(s): sent
--- NOTE | 2018-05-11 10:21 | GOP ---
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 PROCEDURE PERFORMED: Transurethral resection of a large bladder tumor. FINDINGS: DESCRIPTION OF PROCEDURE: Underwent general anesthesia and prepped and draped in a normal sterile fa shion. After appropriate time-out, I passed the scope into the bladder. He had a very large obstruc ting prostate that gave some limitation on the maneuverability of the scope. At that point, I identi fied the left-sided bladder tumor and started resecting from medial to lateral and getting into near the base of the lesion. He had excessive arterial blood flow to this, and eventually turned the elec trocautery bipolar up to 160 and was able to get hemostasis. With every small manipulation of the sc ope, this created further bleeding and hemorrhage, and the impression was he had invasive bladder can cer. I did not feel that I could resect the entire lesion and that it would be of any benefit to him to do that at the present time, and I felt that the risk of bleeding and need for extensive interven tion may be high just because of the size of the arterial blood flow into the base of the tumor, and I had not gone across the entire base. So at that point, I elliked his bladder free of all chips and clots and reinvestigated the base and t here were no significant bleeding sites. There was some oozing from the prostate at the base of the prostate and cauterized that. At that point, placed a 24 three-way catheter with a 30 cc balloon and irrigated clear. [place] there was no instability of the patient and felt there was no perforation of the bladder and because of the size of the tumor, the hypervascularity, and the age of it, felt that the tissue diagnosis had been obtained. To me, it has grossly invasive cancer based on physical exam and CAT scan, and intervention would not be surgical and considering post bladder radiation in tryin g to control the growth of the tumor. Will discuss that with the family. /[id number]/MODL
[2018-05-11] MEDS ORDERED: POTASSIUM Cl (KCl) 10 MEQ in D5W 1/2 NS 1,000 ML IV SCH (10:30)
--- NOTE | 2018-05-11 13:27 | POSTANESTH ---
Post Anesthetic Evaluation Cardiovascular Status: Normal, Stable, Similar to Pre-Op Cond Respiratory Status: Normal, Stable, Similar to Pre-op Cond. Level of Consciousness/Mental Status: Can Participate in Eval, Alert and Oriented Pain Control: Adequate, Prn Tx Ordered Nausea/Vomiting Control: Adequate, Prn Tx Ordered Complications Possibly Related to Anesthesia: None Noted
--- NOTE | 2018-05-11 14:31 | ASMTCMCOM ---
CM Note CM Note Notes: Chart reviewed. Patient underwent urological surgery where it was determined his cancer is very invasive and no surgical cure available. Daughter approached CM about SNF and involvement of hospice if appropriate. Discussed facilities in [place] and she is comfortable and familiar with [facility]. Referral placed via allscripts. Will also reach out to [facility] who patient is current with. CM to follow. Plan: Likely SNF with [facility]. Date Signed: 05/11/2018 02:30 PM Electronically Signed By:Eliana Teresa RN
[2018-05-11] MEDS: HYDROCODONE/APAP 5/325 TAB PO PRN (16:22)
[2018-05-11] MEDS ORDERED: TRAVOPROST Z 0.004% 2.5 ML OPHT.BTL RTEYE SCH (21:00)
[2018-05-11] MEDS ORDERED: amLODIPine BESYLATE 5 MG TAB PO SCH (21:00)
[2018-05-11] MEDS ORDERED: DOCUSATE SODIUM 100 MG CAP PO SCH (21:00)
[2018-05-11] MEDS ORDERED: ZOLPIDEM TARTRATE 5 MG TAB PO SCH (21:00)
[2018-05-12] MEDS: HYDROCODONE/APAP 5/325 TAB PO PRN (02:03)
[2018-05-12] MEDS: ZOLPIDEM TARTRATE 5 MG TAB PO SCH ×2 (03:20→03:51)
[2018-05-12 04:31] LABS: PLATELET COUNT 204 10^3/uL (150-400)
--- NOTE | 2018-05-12 07:09 | SOAPPROG ---
SOAP Progress Note Assessment/Plan: Assessment: Bladder malignancy Acute POD # 1 doing well, plan for pallative irradiation Plan: as noted 05/12/18 09:16 Subjective: doing well Objective: Vital Signs Temp Pulse Resp BP Pulse Ox 36.7 C 57 L 16 133/70 H 95 05/12/18 04:22 05/12/18 04:22 05/12/18 04:22 05/12/18 04:22 05/12/18 04:22 Laboratory Results 05/12/18 03:56 05/12/18 03:56 05/11/18 05/12/18 05/13/18 05:59 05:59 05:59 Intake Total 1680 Output Total -2650 2100 Balance 4330 -2100 Physical Exam - Physical Exam General Appearance: alert Respiratory: No respiratory distress Abdomen: soft Back: No CVA tenderness Extremities: No calf tenderness Neuro/Psych: alert, oriented x 3 ICD10 Worksheet Patient Problems: Problems Problem Status Onset Bleeding Active DENISE (acute kidney injury) Acute Bladder malignancy Acute Fever Acute Obstruction of right ureter Acute Urinary tract infection Acute
[2018-05-12 07:49] VITALS: BP 163/75
[2018-05-12] MEDS ORDERED: Herbals/Supplements -Info Only PO SCH (09:00)
--- NOTE | 2018-05-12 09:37 | GDS ---
[f rep st] DISCHARGE SUMMARY ADMISSION DIAGNOSIS: Bladder cancer. DISCHARGE DIAGNOSIS: Bladder cancer. PROCEDURE DURING HOSPITALIZATION: TURBT. HOSPITAL COURSE: The gentleman was an a.m. admission and had a TURBT. This was a hypervascular lesi on and biopsy was sent. I elected not to try to resect the entire lesion because of the highly vascu lar nature of it and felt that tissue confirmation would be adequate to progress on with potential pa lliative radiation, and I have asked Radiation Oncology to see him for consultation on that. He will be discharged home with a catheter in place and have followup with me in a month for catheter change and palliative radiation is planned per that provider's documents. /[id number]/MODL
--- NOTE | 2018-05-12 10:43 | GCON ---
[f rep st] CONSULTATION RADIATION ONCOLOGY CONSULTATION DATE OF CONSULTATION: 05/12/2018 REFERRING PHYSICIAN: Edil De Jesus MD REASON FOR CONSULTATION: Unresectable bladder cancer, role for palliative radiation. 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 Cameron De Jesus. We do not have the final pathology, but this is like a very large vascularized tumor that was unable to be safely resected. I am being consulted regarding the role of palliative radiation for this tumor. HISTORY OF PRESENT ILLNESS: The patient reports a several month history of difficulty urinating in the form of bladder spasms, inability to empty and start his stream. In March of 2018, he presented to the [facility] Emergency Department for further evaluation. CT scan of the abdomen and pelvis revealed high-grade obstruction of the right renal collecting system , secondary to bladder wall mass with involvement of the distal right ureter. Associated pelvic lymphadenopathy. Urology consultation was recommended. Bilateral renal cortical and parapelvic nodules that are statistically most likely to represent cyst. Solid lesions, including malignancy not excluded by noncontrast imaging. Extensive diverticulosis. Retained stool within the cecum and right hemicolon resultant mild dilatation. CT of the chest revealed no evidence of metastatic disease in the chest. He had a CT cystogram that revealed right-sided bladder mass obstructing the ureterovesical junction and continues with an enlarged nodular prostate. Differential would include extension of prostate carcinoma versus bladder carcinoma. It was an enlarged right pelvic lymph node. Large right inguinal hernia containing a loop of small bowel. He had an MRI of the abdomen that revealed right nephromegaly with right renal hilar inflammation and moderate to severe right hydronephrosis with secondary features likely reflecting calyceal rupture in a patient with a bladder mass obstructing the right ureterovesical junction. Because IV contrast could not be administered an occult right hilar mass would be difficult to exclude in this challenging to better characterize the renal cortical lesions. Recently, the patient has continued to have urinary issues and difficulty voiding his urine. He developed sudden onset fever and confusion and was admitted to [facility] for further workup and management. He was found to have a likely urinary tract infection and started on antibiotics. A urinary catheter was placed and he was set up for attempt at TURBT of the bladder tumor. This was attempted on May 11, 2018, by Dr. Hemanth De Jesus. Intraoperatively, he had a very large obstructing prostate that gave some limitation to the exam. He identified a left-sided bladder tumor and started resecting from medial to lateral and get into the near the base of the lesion. There was excessive arterial blood flow to the tumor and he was able to obtain hemostasis. Any manipulation of the scope caused further bleeding and he elected to abort the procedure and not proceed with further resection of that tumor. After which he did place a right nephrostomy tube to drain urine and he currently has a urethral catheter in place. INTERVAL HISTORY: Since the attempt at TURBT, the patient overall feels relatively well. He denies any bloody discharge from the catheter. Denies any pain. He does denies any weakness or lightheadedness. Otherwise, the patient prior to all this did have a relatively good performance status of ECOG of 1-2. He has declining vision and other comorbidities that have really impacted the quality of his life. At this point, he lives with his daughter, Alejandra, who is on the phone discussing his care with us this morning in the hospital. REVIEW OF SYSTEMS: A complete review of systems is obtained and is negative except as mentioned above. PAST MEDICAL HISTORY: 1. BPH. 2. Bladder cancer. 3. Glaucoma. 4. Hypertension. 5. Hydronephrosis. PAST SURGICAL HISTORY: Tonsillectomy, eye surgery, attempted TURBT of the bladder tumor. FAMILY HISTORY: Prostate cancer, hypertension and cardiovascular disease. SOCIAL HISTORY: The patient lives with his daughter, Alejandra, who is the durable power of admitted attorneys in [place]. She is very involved with his care and on the phone with us today during the discussion. 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 He is , was a nonsmoker, nondrinker. MEDICATIONS: Tylenol, Vicodin, amlodipine, belladonna, alkaloids for bladder spasm, Colace, Zofran, Travatan, Ambien. ALLERGIES: No known drug allergies. PHYSICAL EXAM: HOSPITAL VITAL SIGNS: Blood pressure 163/75, pulse is 56, respiratory rate is 18, oxygen sat is 96%, temperature is 36.7. GENERAL: The patient is a well-appearing pleasant 82-year-old gentleman who is in no acute distress. Alert and orient x3. He is lying comfortably in his hospital bed. CARDIOVASCULAR: Regular rate and rhythm. Normal S1, S2. No murmurs, rubs, or gallops. LUNGS: Clear to auscultation bilaterally. No wheezes, crackles, or rubs. ABDOMEN: Soft, nontender, nondistended. Bowel sounds are present. No masses or lymphadenopathy palpated. GENITOURINARY: Right nephrostomy tube is placed and the site appears clean, dry, and intact. Urethral catheter in place without any signs of infection. Rest of exam is deferred given patient's condition. IMAGING: Please see HPI above for most recent imaging. PATHOLOGY: Pathology from the recent TURBT attempt is pending. ASSESSMENT AND PLAN: The patient is an 82-year-old gentleman with muscle invasive bladder cancer, stage unknown, however, likely clinical T4 N2 M0, stage IIIB of the urinary bladder, status post attempted TURBT yesterday which was aborted because of tumor vascularity and risk of bleeding. I am now evaluating him regarding a role of palliative radiation. DISCUSSION: I had a long discussion with the patient and his daughter, Alejandra today in his hospital room regarding diagnosis and management of stage IIIB bladder cancer. I reviewed with him the clinical course leading up until his recent hospitalization, as well as his condition since the attempted TURBT. Overall he did well with that procedure and seems to have recovered well from the anesthesia and has not suffered any side effects so far. He does have a right nephrostomy tube and urethral catheter and the urine seems to be flowing quite fine. His anticipated discharge is this morning actually per Dr. De Jesus's recommendation. I reviewed the prior imaging with the patient and Alejandra today which shows at least a clinical T4 N1 cancer which is quite large and extensive tumor in the right side of the bladder, which seems to have been obstructing the urethra and does seem to be invading into the prostate, although it is difficult to tell. Surprisingly, the patient was not having terrible side effects until about last month, but does seem like the right nephrostomy tube and urethral catheter will be permanent to allow him to urinate. I discussed the broad treatment recommendations for muscle invasive bladder cancer, which would be either a radical cystectomy or definitive chemo RT with an attempt at preserving the bladder. The patient would likely not tolerate a radical cystectomy or chemotherapy and those options are therefore not the best for him. The only treatment option would be a palliative course of radiation. In lieu of that, the patient could proceed with strictly a palliative or hospice care approach as his life expectancy for this is anywhere from probably 6-8 months. I explained that palliative care and hospice is certainly a reasonable situation in order to manage any side effects or symptoms that may develop from this tumor. I explained that radiation would have a small chance at controlling this cancer and possibly prevent a catastrophic bleeding episode since his tumor is so vascularized. My hope would be that the treatment would cytoreduce his tumor and stabilize it for a short period of time, but I explained that even with radiation, his tumor would grow and progress at some point. I would recommend 5 fractions of palliative radiation to start next week if he is open to that. I think the side effect profile is fairly minimal and would include some fatigue, skin irritation, bladder irritation or spasms, rectal irritation which can manifest as loose stools, frequency and urgency with bowel movements. There is a low risk of any long-term damage from the radiation. After discussion today, the patient would like to attempt 5 fractions of palliative radiation to start next week. He is anticipating a discharge this morning and after that, we will see him in our clinic to do a CT scan simulation and to start treatment next week. The patient gave me verbal and written consent to proceed with radiation planning and delivery. Alejandra, who has durable [id number] over the phone, gave me a verbal consent to proceed as well. I exchanged contact information as well as educational information about radiation with the patient today and I encouraged him to discuss with me in the future if he has any questions or concerns. /[id number]/MODL MTDD
--- NOTE | 2018-05-12 11:25 | ASMTLACE ---
[facility] Length of stay for Answers: 1 day current admission Comorbidities - select Answers: Any tumor (including all that apply lymphoma or leukemia) # of Emergency department Answers: 1-2 visits in the last 6 months Score: 4 Date Signed: 05/12/2018 11:24 AM Electronically Signed By:Eliana Teresa RN
--- NOTE | 2018-05-12 11:31 | ASMTCMCOM ---
CM Note CM Note Notes: Chart reviewed. patient has been medically cleared per urology for discharge to home. He is up ambulating in the halls and states he "Is great". Spoke with daughter Alejandra who thinks looking for SNF was premature at this point and she is willing to take him home. Will resume HHC with [facility] on Tuesday. No other needs anticipated at this point in time. CM available should other needs arise. Plan: Home with family and HHC Date Signed: 05/12/2018 11:31 AM Electronically Signed By:Eliana Teresa RN
== END 2018-05-12 13:20 | disposition home or self-care (01) ==
LOC: F1N 06:56
PROVIDERS: ADMIT Specialist; ATTEND Specialist
PROC: 0TBB8ZX Excision of Bladder, Via Natural or Artificial Opening Endoscopic, Diagnostic (ICD-10-PCS; principal; 2018-05-11 08:30)
DX: C67.9 Malignant neoplasm of bladder, unspecified (principal); R33.9 Retention of urine, unspecified; N13.0 Hydronephrosis with ureteropelvic junction obstruction; N40.3 Nodular prostate with lower urinary tract symptoms; R93.429 Abnormal radiologic findings on diagnostic imaging of unspecified kidney; I10 Essential (primary) hypertension; Z80.42 Family history of malignant neoplasm of prostate; Z82.49 Family history of ischemic heart disease and other diseases of the circulatory system; Z85.49 Personal history of malignant neoplasm of other male genital organs; Z66 Do not resuscitate
CPT/HCPCS: 52234; G0378; J0690; J1100; J2405; J2704; J3010; J3480